=== PATIENT | male | born 1930 | race Caucasian/White ===

== ENCOUNTER 2018-03-05 08:01 | Emergency (ER) | payer OTHER ==
--- OUTSIDE RECORDS SUMMARY | 2018-03-05 08:03 | XMS REPORT | Clinical Summary ---
:1930 Author Organization [facility] Address [address] [place] [address] Phone Care Team Providers Name Role Phone Unavailable Primary Care Provider Unavailable Allergies Active Allergy Reactions Severity Noted Date Comments Alcohol Other (See Comments) 03/24/2016 Rash and hoarseness Cayenne Pepper Other (See Comments) 03/24/2016 Runny nose and hoarseness Chocolate Flavor Other (See Comments) 03/24/2016 Runny nose and hoarseness Peanut Other (See Comments) 03/24/2016 Runny nose hoarseness Rice Other (See Comments) 03/24/2016 Runny nose and hoarseness Tomato (Solanum Other (See Comments) 03/24/2016 Runny nose and Lycopersicum) hoarseness Quinazolinones Rash, Other (See Low 03/24/2016 agitation Comments) Sulfa (Sulfonamide Rash, Other (See Low 03/24/2016 agitation Antibiotics) Comments) Current Medications Prescription Sig. Disp. Refills Start Date End Date Status budesonide-formoterol Inhale 1 puff by mouth Active (SYMBICORT) 160-4.5 via inhaler daily . mcg/actuation inhaler zolpidem (AMBIEN) 10 Take 10 mg by mouth Active mg tablet every night as needed for Insomnia. albuterol Take 2.5 mg by Active (PROVENTIL,VENTOLIN) 5 nebulization every 6 mg/mL nebulizer (six) hours as needed solution for Wheezing. metoprolol (TOPROL-XL) Take 25 mg by mouth Active 25 MG 24 hr tablet daily. traMADol (ULTRAM) 50 Take 50 mg by mouth Active mg tablet every 6 (six) hours as needed for Pain. Active Problems Problem Noted Date Melanoma (HCC) 04/08/2016 Social History Tobacco Use Types Packs/Day Years Used Date Former Smoker 2 10 Comments: qiut at age 29. Alcohol Use Drinks/Week oz/Week Comments Yes 6 Shots of liquor 10.8 not every week 6 Cans of beer 6 Glasses of wine Sex Assigned at Date Recorded Not on file Last Filed Vital Signs Not on file Plan of Treatment Not on file Results Not on fileafter 03/04/2017 Advance Directives Patient has advance directives. For more information, please contact:[facility] [place], [place] [phone]
[2018-03-05] MEDS ORDERED: PANTOPRAZOLE 40 MG INJ ONE (08:41)
[2018-03-05 08:54] LABS: Absolute Lymphocytes (CBC) 0.9 K/uL (0.7-4.9); Absolute Monocytes 0.6 K/uL (0.1-1.3); Absolute Neutrophil 4.3 K/uL (1.8-8.0); Basophils % 1.3 % (0-1.3); Eosinophils % 4.2 % (0-4.4); Hematocrit 42.5 % (39.6-49.0); Lymphocytes % 15.1 % (15.3-44.8); MCV 93.8 fL (80-100); MPV 8.2 fL (7.6-11.3); Monocytes % 9.2 % (3.3-12.3); RBC Red Blood Cell Count 4.53 M/uL (4.33-5.43)
[2018-03-05] MEDS ORDERED: PANTOPRAZOLE INJ 80 MG in NA CHLORIDE 0.9% 250 ML IV SCH (09:00)
[2018-03-05 09:20] LABS: Albumin 3.7 g/dL (3.4-5.0); Bilirubin Direct 0.2 mg/dL (0-0.2); Bilirubin Total 0.5 mg/dL (0.2-1.0); Potassium 4.1 mmol/L (3.5-5.1); Protein, Total 6.9 g/dL (6.4-8.2)
--- NOTE | 2018-03-05 11:07 | RAD REPORT ---
EXAM DESCRIPTION: CT - Abdomen Pelvis W Contrast - 03/05/2018 10:36 am CLINICAL HISTORY: Abdominal pain, possible GI bleed, history of melanoma COMPARISON: CT study November 2016, CT imaging February 2010 TECHNIQUE: Biphasic, helical CT imaging of the abdomen and pelvis was performed following 100 ml non -ionic IV contrast. Oral contrast was administered. All CT scans are performed using dose optimization technique as appropriate and may include automated exposure control or mA/KV adjustment according to patient size. FINDINGS: No acute finding in the lung bases. In the lateral left lung base a 7 millimeter noncalcif ied nodular density is present dating back to 2009. This is not clearly different from the prior imag ing. . Liver size is normal. No suspicious liver lesion. 2 cysts are identified in the posterosuperior right lobe of the liver unchanged from greater than 1 year ago. Pancreas and spleen show no suspicious fin dings. Gallbladder and biliary tree are also without suspicious finding. Symmetric renal function is seen with no hydronephrosis or suspicious renal mass. No pyelonephritis o r acute renal parenchymal process. Benign cyst lateral lower left kidney has not changed from compari son. No gastric dilatation or gastric wall thickening. No acute small bowel finding. Patient has a normal variant mobile cecum with the tip of the cecum and ileocecal valve located in the left anterior mid a bdomen. No active process seen. There is moderate stool volume in the right side colon. No free air, free fluid or inflammatory stranding. No mass or bulky lymphadenopathy. Patient has a s mall incidental fat only umbilical hernia and a small left inguinal fat filled hernia. The urinary bl adder is without significant finding. No adrenal abnormality. Disc and bone degenerative changes are present. No pathologic bone process seen. IMPRESSION: No bowel obstruction, free air or surgically emergent finding. No significant or suspicious abdominal or pelvic finding. The above detailed findings are not clearly different from the study performed 15 months earlier.
--- NOTE | 2018-03-05 11:29 | ER ---
Nurse's Notes [facility] Name: Dave Gavin Age: 87 yrs Sex: Male : 1930 Arrival Date: 03/05/2018 Time: 08:05 Bed 14 Private MD: Jamie Hamm E Diagnosis: Melena Presentation: 03/05 08:19 Presenting complaint: Patient states: Dark black stools x 3 days, nausea today. Denies hb pain. Transition of care: patient was not received from another setting of care. Onset of symptoms was March 03, 2018. Risk Assessment: Do you want to hurt yourself or someone else? Patient reports no desire to harm self or others. Initial Sepsis Screen: Does the patient meet any 2 criteria? No. Patient's initial sepsis screen is negative. Does the patient have a suspected source of infection? No. Patient's initial sepsis screen is negative. Care prior to arrival: None. 08:19 Method Of Arrival: Ambulatory hb 08:19 Acuity: ANGEL 3 hb Historical: - Allergies: 08:20 No Known Allergies; hb - Home Meds: 08:20 Toprol XL 25 mg Oral Tb24 1 tab once daily [Active]; hb - PMHx: 08:20 Hypertension; Atrial Fib; malignant melanoma; hb - PSHx: 08:15 melanoma; prostate; Knee surgery; bladder; eye; rb1 - Immunization history:: Adult Immunizations up to date. - Social history:: Smoking status: Patient/guardian denies using tobacco. - Ebola Screening: : No symptoms or risks identified at this time. - Family history:: not pertinent. - Hospitalizations: : No recent hospitalization is reported. Screenin:15 Abuse screen: Denies threats or abuse. Nutritional screening: Pt. stated, "I haven't rb1 been eating right since my 3 months ago.". Tuberculosis screening: No symptoms or risk factors identified. Fall Risk None identified. Assessment: 08:15 General: Appears in no apparent distress. comfortable, Behavior is calm, cooperative. rb1 Pain: Denies pain. Neuro: Level of Consciousness is awake, alert, obeys commands, Oriented to person, place, time, situation. Cardiovascular: Capillary refill < 3 seconds is brisk in bilateral fingers. Respiratory: Airway is patent Respiratory effort is even, unlabored, Respiratory pattern is regular, symmetrical. GI: Reports bloody stool, nausea. : No signs and/or symptoms were reported regarding the genitourinary system. Derm: Skin is pink, warm \\T\\ dry. Musculoskeletal: Range of motion: intact in all extremities. 08:34 Reassessment: Sent fax to pharmacy requesting the Protonix drip. rb1 09:10 Reassessment: Patient appears in no apparent distress at this time. No changes from rb1 previously documented assessment. 10:10 Reassessment: Patient appears in no apparent distress at this time. Patient and/or rb1 family updated on plan of care and expected duration. Pain level reassessed. Patient is alert, oriented x 3, equal unlabored respirations, skin warm/dry/pink. 11:00 Reassessment: Patient appears in no apparent distress at this time. No changes from rb1 previously documented assessment. Vital Signs: 08:19 BP 150 / 70; Pulse 62; Resp 16; Temp 97.9; Pulse Ox 100% on R/A; Pain 0/10; hb 09:10 BP 142 / 86; Pulse 57; Resp 17; Pulse Ox 97% on R/A; rb1 10:10 BP 129 / 99; Pulse 80; Resp 16; Pulse Ox 95% on R/A; rb1 ED Course: 08:05 Patient arrived in ED. sb2 08:05 Jamie Hamm MD is Private Physician. sb2 08:15 Randell Ingram MD is Attending Physician. rn 08:15 Patient has correct armband on for positive identification. Placed in gown. Bed in low rb1 position. Call light in reach. Side rails up X 1. Pulse ox on. NIBP on. Warm blanket given. 08:20 Triage completed. hb 08:20 Arm band placed on right wrist. hb 08:30 Nadia Cevallos, RN is Primary Nurse. rb1 08:43 Initial lab(s) drawn, by me, sent to lab. T\\T\\S collected, blood band applied to patient. em1 Inserted saline lock: 20 gauge in left antecubital area, using aseptic technique. Blood collected. 10:35 CT completed. Patient moved to CT via stretcher. Patient moved back from CT. kw1 10:36 CT Abd/Pelvis - W/Contrast In Process Unspecified. EDMS 10:42 Patient moved back from CT. kw1 11:28 Krish Cardenas MD is Referral Physician. rn 11:50 No provider procedures requiring assistance completed. IV discontinued, intact, rb1 bleeding controlled, No redness/swelling at site. Pressure dressing applied. Administered Medications: 08:36 Drug: ProTONIX 40 mg Route: IVP; Site: left antecubital; rb1 08:55 Follow up: Response: No adverse reaction rb1 09:00 Drug: ProTONIX 8 mg/hr Route: IV; Rate: 25 ml/hr; Site: left antecubital; rb1 11:48 Follow up: Response: No adverse reaction; IV Status: Completed infusion rb1 Outcome: 11:28 Discharge ordered by MD. rn 11:47 Patient left the ED. aj1 11:50 Discharged to home ambulatory. rb1 11:50 Condition: stable 11:50 Discharge instructions given to patient, Instructed on discharge instructions, follow up and referral plans. medication usage, Demonstrated understanding of instructions, follow-up care, medications, Prescriptions given X 1. Signatures: Dispatcher [employer] EDMS Molly Anguiano RN RN aj1 Ranedll Ingram MD MD rn Martinez, Eric em1 Nadia Cevallos RN RN rb1 Sangita Roblero RN RN Tracy Giles kw1 Anny Carbajal sb2 Corrections: (The following items were deleted from the chart) 09:45 08:15 Pain: Complains of pain in abdomen Pain currently is 3 out of 10 on a pain scale. rb1 Pain began 2-3 days ago. rb1
--- NOTE | 2018-03-05 11:29 | EDPHYS ---
Physician Documentation [facility] Name: Dave Gavin Age: 87 yrs Sex: Male : 1930 Arrival Date: 03/05/2018 Time: 08:05 Bed 14 Private MD: Jamie Hamm E ED Physician Randell Ingram HPI: 03/05 09:20 This 87 yrs old Male presents to ER via Ambulatory with complaints of rn Black/Tarry Stools. 09:20 The patient presents to the emergency department with rectal bleeding, a small amount, rn melena, with multiple such episodes. Onset: The symptoms/episode began/occurred 3 day(s) ago. Abdominal pain: none is appreciated. Associated signs and symptoms: Pertinent negatives: chest pain, dizziness at rest, dizziness when standing, fever, shortness of breath, syncope, vomiting. Severity of symptoms: At their worst the symptoms were mild in the emergency department the symptoms are unchanged. The patient has not experienced similar symptoms in the past. The patient has not recently seen a physician. Pt reports black sticky stools for 3 days, + hx of GERD, lost 3 months ago, generally poor diet since then, no sob/lightheaded, no abd pain.. Historical: - Allergies: 08:20 No Known Allergies; hb - Home Meds: 08:20 Toprol XL 25 mg Oral Tb24 1 tab once daily [Active]; hb - PMHx: 08:20 Hypertension; Atrial Fib; malignant melanoma; hb - PSHx: 08:15 melanoma; prostate; Knee surgery; bladder; eye; rb1 - Immunization history:: Adult Immunizations up to date. - Social history:: Smoking status: Patient/guardian denies using tobacco. - Ebola Screening: : No symptoms or risks identified at this time. - Family history:: not pertinent. - Hospitalizations: : No recent hospitalization is reported. ROS: 09:20 Constitutional: Negative for fever, chills, and weight loss, Eyes: Negative for injury, rn pain, redness, and discharge, Neck: Negative for injury, pain, and swelling, Cardiovascular: Negative for chest pain, palpitations, and edema, Respiratory: Negative for shortness of breath, cough, wheezing, and pleuritic chest pain, Abdomen/GI: Negative for abdominal pain, nausea, vomiting, diarrhea, and constipation, MS/Extremity: Negative for injury and deformity, Skin: Negative for injury, rash, and discoloration, Neuro: Negative for headache, weakness, numbness, tingling, and seizure. Exam: 09:20 Constitutional: This is a well developed, well nourished patient who is awake, alert, rn and in no acute distress. Head/Face: Normocephalic, atraumatic. Eyes: Pupils equal round and reactive to light, extra-ocular motions intact. Normal conjunctivae Abdomen/GI: Soft, non-tender. No distension or tympany. No guarding or rebound. No evidence of tenderness throughout. MS/ Extremity: No cyanosis. Neurovascular intact. Full, normal range of motion Neuro: Awake and alert, GCS 15, oriented to person, place, time, and situation. Motor strength 5/5 in all extremities. Sensory grossly intact. Normal gait. Vital Signs: 08:19 BP 150 / 70; Pulse 62; Resp 16; Temp 97.9; Pulse Ox 100% on R/A; Pain 0/10; hb 09:10 BP 142 / 86; Pulse 57; Resp 17; Pulse Ox 97% on R/A; rb1 10:10 BP 129 / 99; Pulse 80; Resp 16; Pulse Ox 95% on R/A; rb1 MDM: 08:15 Patient medically screened. rn 11:27 Differential diagnosis: gastritis, PUD, ulcer, GERD, UGIB. Data reviewed: vital signs, rn nurses notes, lab test result(s), radiologic studies, CT scan, and as a result, I will discharge patient. Counseling: I had a detailed discussion with the patient and/or guardian regarding: the historical points, exam findings, and any diagnostic results supporting the discharge/admit diagnosis, lab results, radiology results, the need for outpatient follow up, to return to the emergency department if symptoms worsen or persist or if there are any questions or concerns that arise at home. Special discussion: I discussed with the patient/guardian in detail that at this point there is no indication for admission to the hospital. It is understood, however, that if the symptoms persist or worsen the patient needs to return immediately for re-evaluation. Based on the history and exam findings, there is no indication for further emergent testing or inpatient evaluation. I discussed with the patient/guardian the need to see the stove fitter for further evaluation of the symptoms. ED course: Pt feels good, asymptomatic, normal vitals, normal h/h, offered transfer to [facility] given no GI insulation estimator here, patient prefers to try outpt antacids and outpt GI/EGD, risks explained and he is comfortable with plan, will return if worsens. Not on anticoagulation.. 03/05 08:30 Order name: Basic Metabolic Panel; Complete Time: 09:39 rn 03/05 08:30 Order name: CBC with Diff; Complete Time: 09:39 rn 03/05 08:30 Order name: Hepatic Function; Complete Time: 09:39 rn 03/05 08:30 Order name: Lipase; Complete Time: 09:39 rn 03/05 08:30 Order name: CT Abd/Pelvis - W/Contrast; Complete Time: 11:18 rn 03/05 08:30 Order name: Type And Screen; Complete Time: 09:39 rn 03/05 08:30 Order name: IV Saline Lock; Complete Time: 08:42 rn 03/05 08:30 Order name: Labs collected and sent; Complete Time: 08:42 rn Administered Medications: 08:36 Drug: ProTONIX 40 mg Route: IVP; Site: left antecubital; rb1 08:55 Follow up: Response: No adverse reaction rb1 09:00 Drug: ProTONIX 8 mg/hr Route: IV; Rate: 25 ml/hr; Site: left antecubital; rb1 11:48 Follow up: Response: No adverse reaction; IV Status: Completed infusion rb1 Disposition: 03/05/18 11:28 Discharged to Home. Impression: Melena. - Condition is Stable. - Discharge Instructions: Gastrointestinal Bleeding. - Prescriptions for Protonix 40 mg Oral Tablet - take 1 tablet by ORAL route once daily; 30 tablet. - Medication Reconciliation Form, Thank You Letter, Antibiotic Education, Prescription Opioid Use form. - Follow up: Krish Cardenas MD; When: As needed; Reason: Recheck today's complaints, Re-evaluation by your physician. - Problem is new. - Symptoms have improved. Signatures: Dispatcher [employer] Molly Mathias RN RN aj1 Randell Ingram MD MD rn Barber, Rebecca, RN RN rb1 Sangita Roblero RN RN Corrections: (The following items were deleted from the chart) 09:29 09:20 Constitutional: This is a well developed, well nourished patient who is awake, rn alert, and in no acute distress. Head/Face: Normocephalic, atraumatic. Eyes: Pupils equal round and reactive to light, extra-ocular motions intact. Normal conjunctivae Abdomen/GI: Soft, non-tender, with normal bowel sounds. No distension or tympany. No guarding or rebound. No evidence of tenderness throughout. MS/ Extremity: No cyanosis. Neurovascular intact. Full, normal range of motion Neuro: Awake and alert, GCS 15, oriented to person, place, time, and situation. Motor strength 5/5 in all extremities. Sensory grossly intact. Normal gait. rn 11:47 11:28 03/05/2018 11:28 Discharged to Home. Impression: Melena. Condition is Stable. aj1 Forms are Medication Reconciliation Form, Thank You Letter, Antibiotic Education, Prescription Opioid Use. Follow up: Krish Cardenas; When: As needed; Reason: Recheck today's complaints, Re-evaluation by your physician. Problem is new. Symptoms have improved. rn
== END 2018-03-05 11:47 | disposition home or self-care (01) ==
LOC: ER 08:01
DX: K92.1 Melena (principal); I10 Essential (primary) hypertension; I48.91 Unspecified atrial fibrillation
CPT/HCPCS: 36415; 74177; 80048; 80076; 83690; 85025; 86850; 86900; 86901; C9113 ×2; Q9967; 96365; 96366; 99284

== ENCOUNTER 2019-07-19 09:33 | Emergency (ER) | payer OTHER ==
--- OUTSIDE RECORDS SUMMARY | 2019-07-19 09:39 | XMS REPORT ---
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
[2019-07-19 10:22] LABS: Absolute Lymphocytes (CBC) 0.6 K/uL (0.7-4.9); Basophils % 0.4 % (0-1.3); Hematocrit 43.8 % (39.6-49.0); Lymphocytes % 4.4 % (15.3-44.8); MPV 8.4 fL (7.6-11.3); RBC Red Blood Cell Count 4.67 M/uL (4.33-5.43)
[2019-07-19 10:28] LABS: Protime INR 0.89
[2019-07-19 10:30] LABS: Potassium 4.1 mmol/L (3.5-5.1)
[2019-07-19 12:50] LABS: Anisocytosis 1+; Blood Morphology Comment NOTED (NOT SEEN); Platelet Estimate ADEQ; Platelets, Giant FEW; Urine White Blood Cell Casts OK
[2019-07-19 13:01] LABS: Urine Blood 3+ (NEG); Urine Glucose NEGATIVE (NEG); Urine Protein 3+ (NEG)
[2019-07-19 13:04] LABS: Urine Bacteria NONE SEEN /HPF (NONE SEEN); Urine Culture Reflex Order NOT NEEDED; Urine RBC <5 /HPF (NONE SEEN)
--- NOTE | 2019-07-19 13:49 | ER ---
Nurse's Notes [facility] Name: Dave Gavin Age: 89 yrs Sex: Male : 1930 Arrival Date: 07/19/2019 Time: 09:35 Bed 23 Private MD: Jamie Hamm E Diagnosis: Hematuria, unspecified;Urinary Retention Presentation: 07/19 09:41 Presenting complaint: Patient states: woke up in the night and urinated blood, had iw urinary frequency, went 3-4 times, the last time he urinated a large clot and now has not been able to urinate, previous surgeries on bladder, uses abd pressure to help relieve himself due to his weak bladder, also has had a bad cough X 3 months. Transition of care: patient was not received from another setting of care. Onset of symptoms was July 19, 2019. Risk Assessment: Do you want to hurt yourself or someone else? Patient reports no desire to harm self or others. Initial Sepsis Screen: Does the patient meet any 2 criteria? No. Patient's initial sepsis screen is negative. Does the patient have a suspected source of infection? No. Patient's initial sepsis screen is negative. Care prior to arrival: None. 09:41 Method Of Arrival: Ambulatory iw 09:41 Acuity: ANGEL 3 iw Historical: - Allergies: 09:46 Sulfa (Sulfonamide Antibiotics); iw 09:46 Fluroquinolones; iw - Home Meds: 09:44 Toprol XL 25 mg Oral Tb24 1 tab once daily [Active]; iw - PMHx: 09:44 Atrial Fib; Hypertension; malignant melanoma; iw - PSHx: 09:44 melanoma; prostate; Knee surgery; bladder; eye; iw - Immunization history:: Adult Immunizations up to date. - Social history:: Smoking status: Patient/guardian denies using tobacco. - Ebola Screening: : Patient negative for fever greater than or equal to 101.5 degrees Fahrenheit, and additional compatible Ebola Virus Disease symptoms Patient denies exposure to infectious person Patient denies travel to an Ebola-affected area in the 21 days before illness onset No symptoms or risks identified at this time. - Family history:: not pertinent. - Hospitalizations: : No recent hospitalization is reported. Screenin:57 Abuse screen: Denies threats or abuse. Denies injuries from another. Nutritional ca1 screening: No deficits noted. Tuberculosis screening: No symptoms or risk factors identified. Fall Risk IV access (20 points). Assessment: 09:57 General: Appears in no apparent distress. comfortable, Behavior is calm, cooperative, ca1 appropriate for age. Pain: Denies pain. Neuro: Level of Consciousness is awake, alert, obeys commands, Oriented to person, place, time, situation, Appropriate for age. Cardiovascular: Heart tones S1 S2 present Capillary refill < 3 seconds Patient's skin is warm and dry. Respiratory: Airway is patent Respiratory effort is even, unlabored, Respiratory pattern is regular, symmetrical, Breath sounds are clear bilaterally. GI: Abdomen is round non-distended, Bowel sounds present X 4 quads. Abd is soft and non tender X 4 quads. : Reports urgency, urinary frequency, since last night blood in urine with clots. EENT: No signs and/or symptoms were reported regarding the EENT system. Derm: Skin is intact, is healthy with good turgor, Skin is pink, warm \T\ dry. Musculoskeletal: Circulation, motion, and sensation intact. Capillary refill < 3 seconds, Range of motion: intact in all extremities. 10:30 Reassessment: Bladder scanned: 566. ca1 11:04 Reassessment: Attempted a 3-way Cath F20, unable to push further than over have of the ca1 length of the cath. Not return. Attempted a 2 way F16, F12, F8, still unable to push all the way through and still no return. Notified provider. Pt tolerated well . 11:43 Reassessment: Patient appears in no apparent distress at this time. Patient is alert, ca1 oriented x 3, equal unlabored respirations, skin warm/dry/pink. 12:04 Reassessment: Will attempt to insert a Mason again with another nurse/tech. ca1 13:06 Reassessment: Irrigated bladder till clear. Few clots drained. Now draining pink ca1 stained urine. Pt tolerated well and states, feeling relieved. Notified provider. 13:10 Reassessment: Patient appears in no apparent distress at this time. Patient is alert, ca1 oriented x 3, equal unlabored respirations, skin warm/dry/pink. Patient states feeling better. 13:50 Reassessment: Patient appears in no apparent distress at this time. Patient is alert, ca1 oriented x 3, equal unlabored respirations, skin warm/dry/pink. 13:54 Reassessment: Pt discharged with Mason. Instructed on Mason cath care. Instructed to ca1 follow up with Urologist. Vital Signs: 09:46 BP 165 / 95; Pulse 82; Resp 16; Temp 97.4; Pulse Ox 97% on R/A; Weight 87.09 kg; Height iw 5 ft. 11 in. (180.34 cm); Pain 1/10; 11:43 BP 164 / 91; Pulse 88; Resp 17 S; Pulse Ox 95% on R/A; ca1 13:10 BP 135 / 71; Pulse 75; Resp 17 S; Pulse Ox 95% on R/A; ca1 13:50 BP 157 / 67; Pulse 86; Resp 17 S; Pulse Ox 95% on R/A; ca1 09:46 Body Mass Index 26.78 (87.09 kg, 180.34 cm) iw ED Course: 09:35 Patient arrived in ED. rg4 09:35 Jamie Hamm MD is Private Physician. rg4 09:43 Triage completed. iw 09:46 Arm band placed on. iw 09:47 Randell Ingram MD is Attending Physician. rn 09:47 Altagracia Beck RN is Primary Nurse. ca1 09:57 Patient has correct armband on for positive identification. Placed in gown. Bed in low ca1 position. Call light in reach. Side rails up X 1. Pulse ox on. NIBP on. Warm blanket given. 09:57 No provider procedures requiring assistance completed. ca1 10:06 Initial lab(s) drawn, by nm, sent to lab. Inserted saline lock: 20 gauge in right ca1 antecubital area, using aseptic technique. Blood collected. 12:42 Mason cath inserted, using sterile technique, 12 Fr., balloon inflated, to gravity ca1 drainage, other by SHAR [facility] Sup returned bloody urine. Patient tolerated well. 13:06 Bladder irrigated via Mason with 250 ml normal saline returned yon blood Patient ca1 tolerated well. 13:48 Marek Damon MD is Referral Physician. rn 14:08 IV discontinued, intact, bleeding controlled, No redness/swelling at site. Pressure ca1 dressing applied. Administered Medications: No medications were administered Output: 13:12 Urine: 650ml (Mason); Total: 650ml. ca1 Outcome: 13:48 Discharge ordered by . rn 14:08 Discharged to home ambulatory. ca1 14:08 Condition: stable 14:08 Discharge instructions given to patient, Instructed on discharge instructions, follow up and referral plans. medication usage, Catheter Care Demonstrated understanding of instructions, follow-up care, medications, Prescriptions given X 1. 14:09 Patient left the ED. ca1 Signatures: Hailey Mullins RN RN iw Randell Ingram MD MD rn Garcia, Rubi rg4 Altagracia Beck RN RN ca1 Corrections: (The following items were deleted from the chart) 12:14 12:04 Reassessment: Will attempt to insert a Mason again with another nurse/tech. ca1 ca1 13:11 13:10 Reassessment: Patient appears in no apparent distress at this time. Patient is ca1 alert, oriented x 3, equal unlabored respirations, skin warm/dry/pink. ca1 13:12 13:11 Urine 600, (Mason), Output Total 600. ca1 ca1
--- NOTE | 2019-07-19 13:50 | EDPHYS ---
Physician Documentation [facility] Name: Dave Gavin Age: 89 yrs Sex: Male : 1930 Arrival Date: 07/19/2019 Time: 09:35 Bed 23 Private MD: Jamie Hamm E ED Physician Randell Ingram HPI: 07/19 13:44 This 89 yrs old Male presents to ER via Ambulatory with complaints of Urinary rn Problem. 13:44 The patient presents with urinary symptoms, unable to void. Onset: The symptoms/episode rn began/occurred 1 hour(s) ago. Modifying factors: The symptoms are alleviated by nothing, the symptoms are aggravated by nothing. Severity of symptoms: At their worst the symptoms were mild, in the emergency department the symptoms are unchanged. The patient has experienced a previous episode. The patient has not recently seen a physician. Reports noticed blood in urine this AM, then unable to urinate, has happened once before, and had UTI, so took leftover macrobid. Unable to urinate for 1 hour. Minimal discomfort. . Historical: - Allergies: 09:46 Sulfa (Sulfonamide Antibiotics); iw 09:46 Fluroquinolones; iw - Home Meds: 09:44 Toprol XL 25 mg Oral Tb24 1 tab once daily [Active]; iw - PMHx: 09:44 Atrial Fib; Hypertension; malignant melanoma; iw - PSHx: 09:44 melanoma; prostate; Knee surgery; bladder; eye; iw - Immunization history:: Adult Immunizations up to date. - Social history:: Smoking status: Patient/guardian denies using tobacco. - Ebola Screening: : Patient negative for fever greater than or equal to 101.5 degrees Fahrenheit, and additional compatible Ebola Virus Disease symptoms Patient denies exposure to infectious person Patient denies travel to an Ebola-affected area in the 21 days before illness onset No symptoms or risks identified at this time. - Family history:: not pertinent. - Hospitalizations: : No recent hospitalization is reported. ROS: 13:45 Constitutional: Negative for fever, chills, and weight loss, Eyes: Negative for injury, rn pain, redness, and discharge, Cardiovascular: Negative for chest pain, palpitations, and edema, Respiratory: Negative for shortness of breath, cough, wheezing, and pleuritic chest pain, Abdomen/GI: Negative for abdominal pain, nausea, vomiting, diarrhea, and constipation, : + hematuria and retention MS/Extremity: Negative for injury and deformity, Neuro: Negative for headache, weakness, numbness, tingling, and seizure. Exam: 13:45 Constitutional: This is a well developed, well nourished patient who is awake, alert, rn and in no acute distress. Head/Face: Normocephalic, atraumatic. ENT: MMM Cardiovascular: Regular rate and rhythm. No pulse deficits. Respiratory: No increased work of breathing, no retractions or nasal flaring. Abdomen/GI: soft, non-tender, non-distended MS/ Extremity: Pulses equal, no cyanosis. Neurovascular intact. Full, normal range of motion. Equal circumference. Neuro: Awake and alert, GCS 15, oriented to person, place, time, and situation. Cranial nerves II-XII grossly intact. Motor strength 5/5 in all extremities. Sensory grossly intact. Vital Signs: 09:46 BP 165 / 95; Pulse 82; Resp 16; Temp 97.4; Pulse Ox 97% on R/A; Weight 87.09 kg; Height iw 5 ft. 11 in. (180.34 cm); Pain 1/10; 11:43 BP 164 / 91; Pulse 88; Resp 17 S; Pulse Ox 95% on R/A; ca1 13:10 BP 135 / 71; Pulse 75; Resp 17 S; Pulse Ox 95% on R/A; ca1 13:50 BP 157 / 67; Pulse 86; Resp 17 S; Pulse Ox 95% on R/A; ca1 09:46 Body Mass Index 26.78 (87.09 kg, 180.34 cm) iw MDM: 09:47 Patient medically screened. rn 13:45 Differential diagnosis: UTI, urinary retention. Differential diagnosis: bladder cancer, rn bladder diverticulum. Data reviewed: vital signs, nurses notes. Counseling: I had a detailed discussion with the patient and/or guardian regarding: the historical points, exam findings, and any diagnostic results supporting the discharge/admit diagnosis, lab results, the need for outpatient follow up, to return to the emergency department if symptoms worsen or persist or if there are any questions or concerns that arise at home. Response to treatment: the patient's symptoms have markedly improved after treatment, and as a result, I will discharge patient. Special discussion: I discussed with the patient/guardian in detail that at this point there is no indication for admission to the hospital. It is understood, however, that if the symptoms persist or worsen the patient needs to return immediately for re-evaluation. Based on the history and exam findings, there is no indication for further emergent testing or inpatient evaluation. I discussed with the patient/guardian the need to see the urologist for further evaluation of the symptoms. ED course: Pt improved, bladder irrigated and now light pink drainage, no more clots, will dc home with indwelling fleming and abx, with urology f/u. . 07/19 09:57 Order name: Urine Culture rn 07/19 09:57 Order name: Urine Microscopic Only; Complete Time: 13:23 rn 07/19 09:57 Order name: CBC with Diff; Complete Time: 13:23 rn 07/19 09:57 Order name: Basic Metabolic Panel; Complete Time: 13:23 07/19 09:57 Order name: PT-INR; Complete Time: 13:23 07/19 09:57 Order name: Ptt, Activated; Complete Time: 13:23 rn 07/19 09:57 Order name: Urine Dipstick-Ancillary (obtain specimen); Complete Time: 13:10 rn 07/19 09:57 Order name: IV Start; Complete Time: 11:04 rn 07/19 09:57 Order name: Bladder Scanner; Complete Time: 11:03 rn 07/19 09:57 Order name: Bladder Irrigation; Complete Time: 13:06 rn 07/19 09:57 Order name: Fleming; Complete Time: 12:42 rn 07/19 10:37 Order name: CBC Smear Scan; Complete Time: 13:23 EDNM 07/19 12:51 Order name: Urine Dipstick--Ancillary (enter results); Complete Time: 13:23 eb Administered Medications: No medications were administered Disposition: 07/19/19 13:48 Discharged to Home. Impression: Hematuria, unspecified, Urinary Retention. - Condition is Stable. - Discharge Instructions: Fleming Catheter Care, Adult, Hematuria, Adult, Acute Urinary Retention, Male. - Prescriptions for Macrobid 100 mg Oral Capsule - take 1 capsule by ORAL route every 12 hours for 10 days; 20 capsule. - Medication Reconciliation Form, Thank You Letter, Antibiotic Education, Prescription Opioid Use form. - Follow up: Marek Damon MD; When: 1 week; Reason: Recheck today's complaints, Re-evaluation by your physician. - Problem is new. - Symptoms have improved. Signatures: Dispatcher [employer] Hailey Ortiz RN RN Randell Zaragoza MD MD rn Acob, SHAR Frias RN ca1 Corrections: (The following items were deleted from the chart) 14:09 13:48 07/19/2019 13:48 Discharged to Home. Impression: Hematuria, unspecified; Urinary ca1 Retention. Condition is Stable. Forms are Medication Reconciliation Form, Thank You Letter, Antibiotic Education, Prescription Opioid Use. Follow up: Marek Damon; When: 1 week; Reason: Recheck today's complaints, Re-evaluation by your physician. Problem is new. Symptoms have improved. rn
[2019-07-19 14:50] VITALS: TEMP 97.4
[2019-07-19 14:51] VITALS: O2SAT 95
[2019-07-19 14:54] VITALS: BP 157/67
== END 2019-07-19 14:09 | disposition home or self-care (01) ==
LOC: ER 09:33
DX: R33.9 Retention of urine, unspecified (principal); I10 Essential (primary) hypertension; Z88.2 Allergy status to sulfonamides; Z88.8 Allergy status to other drugs, medicaments and biological substances; Z85.46 Personal history of malignant neoplasm of prostate
CPT/HCPCS: 36415; 51700; 51702; 80048; 81003; 81015; 85025; 85610; 85730; 87086; 87088; 99285

== ENCOUNTER 2019-07-19 17:10 | Emergency (ER) | payer OTHER ==
--- OUTSIDE RECORDS SUMMARY | 2019-07-19 17:12 | XMS REPORT ---
:1930 Author Organization [employer] Care Team Providers Name Role Phone Judson Cedillo Provider Role Unavailable Allergies, Adverse Reactions, [...] Date End Date Status Dosage Breo Ellipta [facility] 88060-354 Active not defined 2-10 Spiriva Respimat [facility] 68477-603 Active not defined 0-61 Montelukast [facility] 09212-017 Active not defined Sodium 7-19 Ambien [facility] 18174-399 Active not defined 1-31 Fluticasone [facility] 88213-177 Active not defined Propionate HFA 0-20 Results No Known Results Summary Purpose [employer] Submission
--- NOTE | 2019-07-19 18:28 | ER ---
Nurse's Notes [facility] Name: Dave Gavin Age: 89 yrs Sex: Male : 1930 Arrival Date: 07/19/2019 Time: 17:12 Bed 4 Private MD: Diagnosis: Hematuria, unspecified;Urinary Retention Presentation: 07/19 17:48 Presenting complaint: Patient states: was sent home with fleming in place today, was told iw to irrigate it at home, tried to irrigate it and heard a pop, fleming came out with no balloon in place, also having abd pain. Transition of care: patient was not received from another setting of care. Onset of symptoms was July 19, 2019. Risk Assessment: Do you want to hurt yourself or someone else? Patient reports no desire to harm self or others. Initial Sepsis Screen: Does the patient meet any 2 criteria? No. Patient's initial sepsis screen is negative. Does the patient have a suspected source of infection? No. Patient's initial sepsis screen is negative. Care prior to arrival: None. 17:48 Method Of Arrival: Ambulatory iw 17:48 Acuity: ANGEL 3 iw Triage Assessment: 18:05 General: Appears in no apparent distress. Behavior is calm, cooperative, appropriate vc for age. Pain: Complains of pain in abdomen. Historical: - Allergies: 17:50 Fluroquinolones; iw 17:50 Sulfa (Sulfonamide Antibiotics); iw - PMHx: 17:50 Atrial Fib; Hypertension; malignant melanoma; iw - PSHx: 17:50 melanoma; prostate; Knee surgery; bladder; eye; iw - Immunization history:: Adult Immunizations up to date. - Ebola Screening: : Patient negative for fever greater than or equal to 101.5 degrees Fahrenheit, and additional compatible Ebola Virus Disease symptoms Patient denies exposure to infectious person Patient denies travel to an Ebola-affected area in the 21 days before illness onset No symptoms or risks identified at this time. - Family history:: not pertinent. - Social history:: Smoking status: Patient/guardian denies using tobacco. - Hospitalizations: : No recent hospitalization is reported. Screenin:05 Abuse screen: Denies threats or abuse. Nutritional screening: No deficits noted. vc Tuberculosis screening: No symptoms or risk factors identified. Fall Risk IV access (20 points). Mental Status- Oriented to own ability (0 pts). Total Barroso Fall Scale indicates No Risk (0-24 pts). Assessment: 18:05 General: Appears in no apparent distress. uncomfortable. Pain: Complains of pain in vc abdomen. Neuro: Level of Consciousness is awake, alert, obeys commands, Oriented to person, place, time. Cardiovascular: Patient's skin is warm and dry. Respiratory: Airway is patent Respiratory effort is even, unlabored. GI: No signs and/or symptoms were reported involving the gastrointestinal system. : Urine is yon blood. EENT: Reports hard of hearing.. 18:05 Derm: Skin is healthy with good turgor. Musculoskeletal: Range of motion: intact in all vc extremities. 18:54 Reassessment: Reassessment: Patient states that he was irrigating his fleming when he vc heard a loud pop and then had abdominal pain. Patient showed us the port he used to irrigate, which happened to be the port used to fill the fleming balloon. 19:09 General: Appears in no apparent distress. comfortable, Behavior is calm, cooperative, jd3 appropriate for age. Pain: Complains of pain in suprapubic area. Neuro: Level of Consciousness is awake, alert, obeys commands, Oriented to person, place, time, situation. Cardiovascular: Capillary refill < 3 seconds Patient's skin is warm and dry. Respiratory: Airway is patent Respiratory effort is even, unlabored, Respiratory pattern is regular, symmetrical. GI: Reports lower abdominal pain. : Fleming in place to gravity drainage Urine is yon blood. EENT: No signs and/or symptoms were reported regarding the EENT system. Derm: Skin is intact, Skin is dry, Skin is normal, Skin temperature is warm. Musculoskeletal: Circulation, motion, and sensation intact. Range of motion: intact in all extremities. 20:10 Reassessment: Patient appears in no apparent distress at this time. No changes from jd3 previously documented assessment. Patient and/or family updated on plan of care and expected duration. Pain level reassessed. Patient is alert, oriented x 3, equal unlabored respirations, skin warm/dry/pink. report given to [facility] Bent[facility] Levi RN. 20:43 Reassessment: Patient appears in no apparent distress at this time. No changes from jd3 previously documented assessment. Patient and/or family updated on plan of care and expected duration. Pain level reassessed. Patient is alert, oriented x 3, equal unlabored respirations, skin warm/dry/pink. report given to EMS. Vital Signs: 17:50 BP 153 / 101; Pulse 93; Resp 16; Temp 98.2; Pulse Ox 94% on R/A; Weight 86.64 kg; iw Height 5 ft. 11 in. (180.34 cm); Pain 6/10; 19:11 BP 136 / 87; Pulse 94; Resp 18 S; Pulse Ox 95% on R/A; jd3 20:10 BP 136 / 90; Pulse 90; Resp 16 S; Pulse Ox 97% on R/A; jd3 17:50 Body Mass Index 26.64 (86.64 kg, 180.34 cm) ED Course: 17:12 Patient arrived in ED. rg4 17:49 Triage completed. iw 18:04 Rosa Ley, RN is Primary Nurse. vc 18:05 Arm band placed on. vc 18:05 Patient has correct armband on for positive identification. Placed in gown. Bed in low vc position. Call light in reach. Side rails up X2. 18:06 Randell Ingram MD is Attending Physician. rn 18:35 Coud inserted, using sterile technique, 14 Fr. Returned bloody urine. To gravity vc drainage. Patient tolerated well. 18:52 Inserted saline lock: 20 gauge in right antecubital area, using aseptic technique. vc 18:53 Basic Metabolic Panel Sent. vc 18:53 CBC with Diff Sent. vc 20:43 No provider procedures requiring assistance completed. Patient transferred, IV remains jd3 in place. Administered Medications: No medications were administered Outcome: 18:27 ER care complete, transfer ordered by . rn 20:43 Transferred by ground [facility] to [facility], Transfer form completed. jd3 20:43 Condition: stable 20:43 Instructed on the need for transfer, Demonstrated understanding of instructions. 20:44 Patient left the ED. jd3 Signatures: Hailey Mullins RN RN Randell Ingram MD MD rn Garcia, Rubi rg4 Javid Pete RN RN jd3 Calcote, Vanessa, RN RN vc Corrections: (The following items were deleted from the chart) 19:12 18:54 Reassessment: vc vc
--- NOTE | 2019-07-19 18:29 | EDPHYS ---
Physician Documentation [facility] Name: Dave Gavin Age: 89 yrs Sex: Male : 1930 Arrival Date: 07/19/2019 Time: 17:12 Bed 4 Private MD: ED Physician Randell Ingram HPI: 07/19 18:11 This 89 yrs old Male presents to ER via Ambulatory with complaints of Problem rn With Urinary Catheter. 18:11 The patient presents with urinary symptoms, retention. Onset: The symptoms/episode rn began/occurred this morning. Modifying factors: The symptoms are alleviated by nothing, the symptoms are aggravated by urinating. Associated signs and symptoms: Pertinent positives: abdominal pain, hematuria, Pertinent negatives: fever. Severity of symptoms: At their worst the symptoms were moderate, in the emergency department the symptoms are unchanged. The patient has experienced a previous episode. The patient has been recently seen at the [facility] Emergency Department. Seen earlier today, sent home with fleming catheter, small size due to trouble passing catheter, got clogged when went home. Unable to urinate with lower abd pain. States tried to irrigate catheter, felt a lot of pressure, heard a light pop, and fleming catheter came out, thinks popped balloon. . Historical: - Allergies: 17:50 Fluroquinolones; iw 17:50 Sulfa (Sulfonamide Antibiotics); iw - PMHx: 17:50 Atrial Fib; Hypertension; malignant melanoma; iw - PSHx: 17:50 melanoma; prostate; Knee surgery; bladder; eye; iw - Immunization history:: Adult Immunizations up to date. - Ebola Screening: : Patient negative for fever greater than or equal to 101.5 degrees Fahrenheit, and additional compatible Ebola Virus Disease symptoms Patient denies exposure to infectious person Patient denies travel to an Ebola-affected area in the 21 days before illness onset No symptoms or risks identified at this time. - Family history:: not pertinent. - Social history:: Smoking status: Patient/guardian denies using tobacco. - Hospitalizations: : No recent hospitalization is reported. ROS: 18:16 Constitutional: Negative for fever, chills, and weight loss, Eyes: Negative for injury, rn pain, redness, and discharge, Cardiovascular: Negative for chest pain, palpitations, and edema, Respiratory: Negative for shortness of breath, cough, wheezing, and pleuritic chest pain, Abdomen/GI: Negative for vomiting, diarrhea, and constipation, : + hematuria and lower abd pain, + urinary retention MS/Extremity: Negative for injury and deformity, Skin: Negative for injury, rash, and discoloration, Neuro: Negative for headache, weakness, numbness, tingling, and seizure. Exam: 18:16 Constitutional: This is a well developed, well nourished patient who is awake, alert, rn appears anxious Head/Face: Normocephalic, atraumatic. ENT: MMM Cardiovascular: Regular rate and rhythm. No pulse deficits. Respiratory: No increased work of breathing, no retractions or nasal flaring. Abdomen/GI: soft, mild suprapubic tenderness MS/ Extremity: Pulses equal, no cyanosis. Neurovascular intact. Full, normal range of motion. Equal circumference. Neuro: Awake and alert, GCS 15, oriented to person, place, time, and situation. Cranial nerves II-XII grossly intact. Motor strength 5/5 in all extremities. Sensory grossly intact. Cerebellar exam normal. Normal gait. Vital Signs: 17:50 BP 153 / 101; Pulse 93; Resp 16; Temp 98.2; Pulse Ox 94% on R/A; Weight 86.64 kg; iw Height 5 ft. 11 in. (180.34 cm); Pain 6/10; 19:11 BP 136 / 87; Pulse 94; Resp 18 S; Pulse Ox 95% on R/A; jd3 20:10 BP 136 / 90; Pulse 90; Resp 16 S; Pulse Ox 97% on R/A; jd3 17:50 Body Mass Index 26.64 (86.64 kg, 180.34 cm) iw MDM: 18:06 Patient medically screened. rn 18:17 ED course: new fleming catheter placed, will irrigate once again, and transfer given 2 rn visits today with ongoing hematuria and no urology here. . 18:25 Differential diagnosis: UTI, urinary retention. Data reviewed: vital signs, nurses rn notes, lab test result(s), and as a result, I will admit patient. Counseling: I had a detailed discussion with the patient and/or guardian regarding: the historical points, exam findings, and any diagnostic results supporting the discharge/admit diagnosis, lab results, the need to transfer to another facility, [facility] does not immediately have the required specialist. Response to treatment: the patient's symptoms have mildly improved after treatment, and as a result, I will admit patient. Admission orders: after a detailed discussion of the patient's condition and case, the admit orders are written by me. ED course: Accepted for transfer to [facility] for urinary retention and ongoing hematuria. . 07/19 18:11 Order name: CBC with Diff rn 07/19 18:11 Order name: Basic Metabolic Panel rn 07/19 18:11 Order name: Fleming-Hematuria; Complete Time: 18:53 rn 07/19 20:30 Order name: Manual Differential EDMS Administered Medications: No medications were administered Disposition: 07/19/19 18:27 Transfer ordered to [facility]. Diagnosis are Hematuria, unspecified, Urinary Retention. - Reason for transfer: Higher level of care. - Accepting physician is . - Condition is Stable. - Problem is new. - Symptoms have improved. Signatures: Dispatcher [employer] EDMS Hailey Mullins RN RN iw Nieto, Roman, MD MD rn Davies, Jonathon, RN RN jRosa Hardy RN RN vc Corrections: (The following items were deleted from the chart) 20:44 18:27 07/19/2019 18:27 Transfer ordered to [facility]. Diagnosis is jd3 Hematuria, unspecified; Urinary Retention. Reason for transfer: Higher level of care. Accepting physician is . Condition is Stable. Problem is new. Symptoms have improved. rn
[2019-07-19 18:59] LABS: Absolute Lymphocytes (CBC) 0.4 K/uL (0.7-4.9); Basophils % 0.6 % (0-1.3); Hematocrit 43.5 % (39.6-49.0); Lymphocytes % 2.1 % (15.3-44.8); MPV 8.2 fL (7.6-11.3); RBC Red Blood Cell Count 4.61 M/uL (4.33-5.43)
[2019-07-19 19:14] LABS: Potassium 4.3 mmol/L (3.5-5.1)
[2019-07-19 20:29] LABS: Blood Morphology Comment NOT SEEN (NOT SEEN); Platelet Estimate ADEQ
[2019-07-19 21:58] VITALS: TEMP 98.2
[2019-07-19 22:02] VITALS: BP 136/90; O2SAT 97
== END 2019-07-19 20:44 | disposition short-term general hospital (02) ==
LOC: ER 17:10
DX: R33.9 Retention of urine, unspecified (principal); I10 Essential (primary) hypertension; Z85.46 Personal history of malignant neoplasm of prostate; Z88.2 Allergy status to sulfonamides; Z88.8 Allergy status to other drugs, medicaments and biological substances
CPT/HCPCS: 36415; 80048; 85025; 99285

== ENCOUNTER 2020-12-19 09:56 | Emergency (ER) | payer OTHER ==
--- OUTSIDE RECORDS SUMMARY | 2020-12-19 10:00 | XMS REPORT | Continuity of Care Document ---
:1930 Author Organization [facility] t Address 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[facility] - arthropath arthropath Me moria y of right y of right l shoulder shoulder Outpat i ent Clinics 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 [facility] urin urin [facility] - obs/LUTS obs/LUTS Memori a l Outpati ent Clinics Allergies, Adverse Reactions, Alerts Allergy Allergy Status Severity Reaction(s) Onset Inactive Treating Comm ents Source Name Type Date Date Clinician Alcohol Drug Active Other (See Rash and [facility] Allergy Comments) 03-24 hoarsenes Mckenzie es - 00:00: s Medical 00 [facility] Cay[place] Drug Active Other (See Runny [facility] Pepper Allergy Comments) 03-24 nose and Luke s - 00:00: hoarsenes Medical 00 [facility] Chocolat Drug Active Other (See Runny [facility] Flavor Allergy Comments) 03-24 nose and Mary kes - 00:00: hoarsenes Medical 00 [facility] Peanut Drug Active Other (See Runny [facility] Allergy Comments) 03-24 [facility] Quinazol Drug Active Rash, Other agitation [facility] inones Allergy (See 03-24 [facility] - Comments) 00:00: Medical 00 Center Rice Drug Active Other (See Runny [facility] Allergy Comments) 03-24 nose and Luke s - 00:00: [facility] 00 [facility] Sulfa Drug Active Rash, Other agitation [facility] (Sulfona Allergy (See 03-24 [facility] - mide Comments) 00:00: Medical Antibiot 00 Center ics) Tomato Drug Active Other (See Runny [facility] (Solanum Allergy Comments) 03-24 nose and Mary kes - Lycopers 00:00: [facility] al icum) 00 [facility] Sulfa Adverse Active Info Not [facility] Reaction Available [facility] Antibiot Adverse Active Info Not [facility] t ic Reaction Available [facility] ent Clinics Social History Social Habit Start Date Stop Date Quantity Comments Source Sex Assigned At [facility] Cigarettes smoked 2019-07-19 2019-07-19 [facility] - current (pack per 00:00:00 00:00:00 [facility] Center day) - Reported Cigarette 2019-07-19 2019-07-19 [facility] - pack-years 00:00:00 00:00:00 [facility] Alcohol intake 2019-07-19 2019-07-[address] [facility] Jaun mortensen [facility]ukes - 00:00:00 00:00:00 of alcohol [facility] Center (finding) Tobacco Comment 2016-03-24 2016-03-24 qiut at age [address] [facility] Lukes - 00:00:00 00:00:00 [facility] Alcohol Comment 2016-03-24 2016-03-24 not every week [facility] - 00:00:00 00:00:00 [facility] Smoking Status Start Date Stop Date Source Former smoker 2019-07-19 00:00:00 2019-07-19 00:00:00 [facility] Medications Ordered Filled Start Stop Current Ordering Indication Dosage Frequency Signature Comments Components Source Medication Medication Date Date Medication? Clinician (SIG) Name Name budesonide- Yes 1{puff} QD Inhale [address] [facility] formoterol 1-01 puff by Lukes - (SYMBICORT) 13:52: mouth via M edical 160-4.5 51 inhaler Center mcg/actuati daily . on inhaler zolpidem 2019-0 Yes 10mg Take [address] [facility] (AMBIEN) 10 1-01 by mouth Luke s - mg tablet 13:52: every Medical 51 night as Center needed for Insomnia. albuterol 2019-0 Yes 2.5mg Take 2.[address] [facility] (PROVENTIL, 1-01 mg by Lukes - VENTOLIN) 5 13:52: nebulizati Medical mg/mL 51 on every 6 Center nebulizer (six) solution hours as needed for Wheezing. traMADol 2019-0 Yes 50mg Take [address] (ULTRAM) 50 1- by mouth Luke s - mg tablet 13:52: every 6 Medic al 51 (six) Center hours as needed for Pain. vitamin E 2019-0 Yes 50mg QD Take [address] mixed 400 07-25 by mouth Lukes - unit Cap 13:52: daily. Medical 51 Center ciclopirox Yes Apply to [facility] (LOPROX) 6-14 groin and Lukes - 0.77 % 00:00: feet twice Medic al cream 00 a day Center fluticasone Yes [facility] furoate-eveline 5-20 [facility] - anterol 00:00: Medical (BREO 00 Center ELLIPTA) 100-25 mcg/dose DsDv Breo Breo Yes Marek not [facility] Ellipta Ellipta Nelson defined Luke s - Memoria l Outpati ent Clinics Spiriva Spiriva Yes Marek not [facility] Respimat Respimat [place] defined Mary kes - Memoria l Outpati ent Clinics Montelukast Montelukast Yes Marek not [facility] Sodium Sodium [place] defined Lukes - [facility] Outpati ent Clinics Ambien Ambien Yes Marek not [facility] [place] defined Lukes - [facility]oria [facility] Outpati ent Clinics Fluticasone Fluticasone Yes Marek not [facility] Propionate Propionate Nelson defined [facility]ukes - HFA HFA [facility] Zolpidem Zolpidem Yes Marek [address] [address] Tartrate Tartrate Nelson at bedtime [facility]ukes - as needed [facility] Incruse Incruse Yes Marek [address] [facility] Ellipta Ellipta [place] [facility] Procedures This patient has no known procedures. Plan of Care Planned Activity Planned Date Details Comments Source Future Scheduled 2020-03-25 INFLUENZA VACCINE (#1) [facility] - Test 00:00:00 [code = INFLUENZA Medical Ce nter VACCINE (#1)] Future Scheduled 2019-07-[address] [facility] ukes - Test 00:00:00 WELLNESS (YEAR 2 or Medical Center FIRST YEAR if no IPPE) [code = MEDICARE ANNUAL WELLNESS (YEAR 2 or FIRST YEAR if no IPPE)] Future Scheduled 1996 PNEUMOCOCCAL 65+ YRS [facility] - Test 00:00:00 (1 of 1 - Medical Center [id number]) [code = PNEUMOCOCCAL 65+ YRS (1 of 1 - [id number] PCV13)] Encounters Start End Encounter Admission Attending Care Care Encounter Source Date/Time Date/Time Type Type Clinicians Facility Department ID 2019-08-07 2019-08-07 Outpatient [place] [id number] 10:31:00 10:31:00 t Specialty/U Mary kes - [facility]y [facility] 2019-07-27 2019-07-27 Outpatient Jorge [place] [id number] 11:15:00 11:15:00 t Specialty/U Mary kes - Specialty rology Memori a /Urology Clinic [facility] ent [facility] 2019-07-24 2019-07-24 Outpatient Jorge [place] [id number] 14:53:00 14:53:00 t Specialty/U Mary kes - Specialty rology Memori a /Urology Clinic [facility] ent [facility] 2019-04-05 2019-04-05 Outpatient Jorge [place] [id number] 08:30:00 08:30:00 t Bone Bone and [facility] - and [facility] Results Test Description Test Time Test Comments Results Result Comments Source PSA 2019-07-25 13:05:00 Test Item Value Reference Range Interpretation Comme nts PROSTATE SPECIFIC ANTIGEN (BEAKER) (test code = 844) 2.4 ng/mL 0 .0-4.0 MR, ABDOMEN, [id number] 10:09:00FINAL REPORT INDICATION:History of prostate cancer and possible liver lesion.COMPARISON: Abdomen pelvis CT without contrast July 20, 2019 TECHNIQUE: MR of the Abdomen WITHOUT and WITH intravenous contrast. FINDINGS:There are several benign liver cysts, the largest in the posterior segment measuring 1.6 cm. No suspicious liver lesion or mass is demonstrated. The liver is normal in contour and signal (no cirrhosis or fatty infiltration). The hepatic vasculature is patent. Gallbladder is normal and there is no biliary ductal dilation. No pancreatic mass or ductal dilation is demonstrated. The spleen and adrenal glands are normal. The patient is status post right nephrectomy. In the left kidney lower pole there is a 1.8 cm multiseptated cyst. Simple benign partially exophytic cyst of the left lower pole is noted. There is a 3.5 cm duodenal diverticulum. Visualized bowel loops otherwise unremarkable. Miniscule bilateral pleural effusions are noted. Osseous structures unremarkable. IMPRESSION:Benign liver cysts. No evidence of hepatic metastasis. Prior right nephrectomy. Left kidney complex cyst measuring 1.8 cm, indeterminate. Follow-up abdomen MR without and with intravenous contrast in one year is recommended. Signed: Sigifredo Carranza MDReport Verified Date/Time: 07/25/2019 10:09:43 Reading Location: [address] Transitional Reading Room [id number] 05:41:00 Test Item Value Reference Range Interpretation Comments MAGNESIUM (BEAKER) (test code = 1.8 mg/dL 1.6-2.6 627) BASIC METABOLIC [id number] 05:41:00 Test Item Value Reference Range Interpretation Comments SODIUM (BEAKER) 141 meq/L 136-145 (test code = 381) POTASSIUM (BEAKER) 3.9 meq/L 3.5-5.1 (test code = 379) CHLORIDE (BEAKER) 109 meq/L 98-107 H (test code = 382) CO2 (BEAKER) (test 25 meq/L 22-29 code = 355) BLOOD UREA NITROGEN 15 mg/dL 7-21 (BEAKER) (test code = 354) CREATININE (BEAKER) 1.05 mg/dL 0.57-1.25 (test code = 358) GLUCOSE RANDOM 103 mg/dL 70-105 (BEAKER) (test code = 652) CALCIUM (BEAKER) 9.8 mg/dL 8.4-10.2 (test code = 697) EGFR (BEAKER) (test 67 mL/min/1.73 ESTIMA TREY GFR IS code = 1092) sq m NOT ACCURATE CREATININE CLEARANCE IN PREDICTING GLOMERULAR FILTRATION RATE . ESTIMATED GFR I S NOT APPLICABLE FOR DIALYSIS PATIEN TS. CBC W/PLT COUNT & AUTO [id number] 05:04:00 Test Item Value Reference Range Interpretation Comments WHITE BLOOD CELL COUNT (BEAKER) 7.4 K/ L 3.5-10.5 (test code = 775) RED BLOOD CELL COUNT (BEAKER) 3.79 M/ L 4.63-6.08 L (test code = 761) HEMOGLOBIN (BEAKER) (test code = 11.6 GM/DL 13.7-17.5 L 410) HEMATOCRIT (BEAKER) (test code = 36.4 % 40.1-51.0 L 411) MEAN CORPUSCULAR VOLUME (BEAKER) 96.0 fL 79.0-92.2 H (test code = 753) MEAN CORPUSCULAR HEMOGLOBIN 30.6 pg 25.7-32.2 (BEAKER) (test code = 751) MEAN CORPUSCULAR HEMOGLOBIN CONC 31.9 GM/DL 32.3-36.5 L (BEAKER) (test code = 752) RED CELL DISTRIBUTION WIDTH 13.0 % 11.6-14.4 (BEAKER) (test code = 412) PLATELET COUNT (BEAKER) (test 350 K/CU MM 150-450 code = 756) MEAN PLATELET VOLUME (BEAKER) 9.7 fL 9.4-12.4 (test code = 754) NUCLEATED RED BLOOD CELLS 0 /100 WBC 0-0 (BEAKER) (test code = 413) NEUTROPHILS RELATIVE PERCENT 64 % (BEAKER) (test code = 429) LYMPHOCYTES RELATIVE PERCENT 19 % (BEAKER) (test code = 430) MONOCYTES RELATIVE PERCENT 10 % (BEAKER) (test code = 431) EOSINOPHILS RELATIVE PERCENT 6 % (BEAKER) (test code = 432) BASOPHILS RELATIVE PERCENT 1 % (BEAKER) (test code = 437) NEUTROPHILS ABSOLUTE COUNT 4.72 K/ L 1.78-5.38 (BEAKER) (test code = 670) LYMPHOCYTES ABSOLUTE COUNT 1.41 K/ L 1.32-3.57 (BEAKER) (test code = 414) MONOCYTES ABSOLUTE COUNT (BEAKER) 0.73 K/ L 0.30-0.82 (test code = 415) EOSINOPHILS ABSOLUTE COUNT 0.41 K/ L 0.04-0.54 (BEAKER) (test code = 416) BASOPHILS ABSOLUTE COUNT (BEAKER) 0.09 K/ L 0.01-0.08 H (test code = 417) IMMATURE GRANULOCYTES-RELATIVE 1 % 0-1 PERCENT (BEAKER) (test code = 2801) U/S, ABDOMINAL, [id number] 19:07:00Reason for exam:->r/o metastatic prostate cancer Should this be performed at the bedside?->NoFINAL REPORT Limited ultrasound of the abdomen Clinical indications: Concern for metastatic prostate cancer COMPARISON: CT of the abdomen and pelvis dated 07/20/2019 Technique/findings:The patient presented to the ultrasound department for biopsy of a right hepatic lobe lesion seen on recent CT scan. The patient's liver was scanned both by a registered casing crew pusher and mild sulcal. No correlate lesion was identified on ultrasound to the lesion seen on the CT scan. A simple hepatic cyst was noted in the right hepatic lobe which does not correspond to the lesion seen on recent CT. Because the suspicious lesion could not be identified with ultrasound and no procedure was performed. Recommend MRI of the abdomen with contrast for further attenuation. Signed: Ryan Suárez MDReport Verified Date/Time: 07/24/2019 19:07:31 Reading Location: [place] [address] Angio Body Reading Room BONE AND/OR JOINT IMAGING, WHOLE [id number] 15:49:00FINAL REPORT PROCEDURE: BONE SCAN, WHOLE BODY CPT CODE: 24340 INDICATION: Prostate cancer PROTOCOL: 20.2 mCi of Tc-99m MDP was injected intravenously. Wholebody and selected spot images were obtained approximately 3 hours later. FINDINGS: Delayed whole body bone scan spot images shows increased activity in the shoulders acromioclavicular joints, right worse than left sternal manubrial joints, lowers cervical spine, the wrist and mid right foot. There is focal increased activity involving L1/L2 with slight leftward concavity. The right kidney is not visualized. IMPRESSION: Abnormal whole body bone scan. There is widespread abnormalities consistent with degenerative changes. There is no typical metastatic pattern. Images for comparison/correlation were unavailable. Signed: Andre Forte MDReport Verified Date/Time: 07/24/2019 15:49:51 Reading Location: [address] Reading Room Electronically signed by: ANDRE FORTE MD on07/24/2019 03:49 [id number] 05:42:00 Test Item Value Reference Range Interpretation Comments PROTIME (BEAKER) (test code = 13.5 seconds 11.9-14.2 759) INR (BEAKER) (test code = 370) 1.1 <=5.9 PARTIAL THROMBOPLASTIN TIME 28.4 seconds 22.5-36.0 (BEAKER) (test code = 760) Effective 12/20/2018: PT Reference Range ChangeNew: 11.9-14.2 Previous: 11.7- 14.7RECOMMENDED COUMADIN/WARFARIN INR THERAPY RANGESSTANDARD DOSE: 2.0-3.0 Includes: PROPHYLAXIS for venous thrombosis, systemic embolization; TREATMENT for venous thrombosis and/or pulmonary embolus.HIGH RISK: Target INR is2.5-3.5 for patients wiht mechanical heart valves.[id number] 05:32:00 Test Item Value Reference Range Interpretation Comments PHOSPHORUS (BEAKER) (test code = 3.2 mg/dL 2.3-4.7 604) [id number] 05:32:00 Test Item Value Reference Range Interpretation Comments MAGNESIUM (BEAKER) (test code = 1.8 mg/dL 1.6-2.6 627) BASIC METABOLIC [id number] 05:32:00 Test Item Value Reference Range Interpretation Comments SODIUM (BEAKER) 139 meq/L 136-145 (test code = 381) POTASSIUM (BEAKER) 3.8 meq/L 3.5-5.1 (test code = 379) CHLORIDE (BEAKER) 107 meq/L 98-107 (test code = 382) CO2 (BEAKER) (test 28 meq/L 22-29 code = 355) BLOOD UREA NITROGEN 17 mg/dL 7-21 (BEAKER) (test code = 354) CREATININE (BEAKER) 1.04 mg/dL 0.57-1.25 (test code = 358) GLUCOSE RANDOM 102 mg/dL 70-105 (BEAKER) (test code = 652) CALCIUM (BEAKER) 9.8 mg/dL 8.4-10.2 (test code = 697) EGFR (BEAKER) (test 67 mL/min/1.73 ESTIMA TREY GFR IS code = 1092) sq m NOT ACCURATE CREATININE CLEARANCE IN PREDICTING GLOMERULAR FILTRATION RATE . ESTIMATED GFR I S NOT APPLICABLE FOR DIALYSIS PATIEN TS. LACTATE DEHYDROGENASE (LDH)2019-07-24 05:32:00 Test Item Value Reference Range Interpretation Comments LACTATE DEHYDROGENASE (BEAKER) (test 146 U/L 125-220 code = 635) CBC W/PLT COUNT & AUTO [id number] 05:11:00 Test Item Value Reference Range Interpretation Comments WHITE BLOOD CELL COUNT (BEAKER) 6.3 K/ L 3.5-10.5 (test code = 775) RED BLOOD CELL COUNT (BEAKER) 3.60 M/ L 4.63-6.08 L (test code = 761) HEMOGLOBIN (BEAKER) (test code = 11.4 GM/DL 13.7-17.5 L 410) HEMATOCRIT (BEAKER) (test code = 34.4 % 40.1-51.0 L 411) MEAN CORPUSCULAR VOLUME (BEAKER) 95.6 fL 79.0-92.2 H (test code = 753) MEAN CORPUSCULAR HEMOGLOBIN 31.7 pg 25.7-32.2 (BEAKER) (test code = 751) MEAN CORPUSCULAR HEMOGLOBIN CONC 33.1 GM/DL 32.3-36.5 (BEAKER) (test code = 752) RED CELL DISTRIBUTION WIDTH 13.0 % 11.6-14.4 (BEAKER) (test code = 412) PLATELET COUNT (BEAKER) (test 312 K/CU MM 150-450 code = 756) MEAN PLATELET VOLUME (BEAKER) 9.9 fL 9.4-12.4 (test code = 754) NUCLEATED RED BLOOD CELLS 0 /100 WBC 0-0 (BEAKER) (test code = 413) NEUTROPHILS RELATIVE PERCENT 60 % (BEAKER) (test code = 429) LYMPHOCYTES RELATIVE PERCENT 22 % (BEAKER) (test code = 430) MONOCYTES RELATIVE PERCENT 10 % (BEAKER) (test code = 431) EOSINOPHILS RELATIVE PERCENT 5 % (BEAKER) (test code = 432) BASOPHILS RELATIVE PERCENT 1 % (BEAKER) (test code = 437) NEUTROPHILS ABSOLUTE COUNT 3.82 K/ L 1.78-5.38 (BEAKER) (test code = 670) LYMPHOCYTES ABSOLUTE COUNT 1.41 K/ L 1.32-3.57 (BEAKER) (test code = 414) MONOCYTES ABSOLUTE COUNT (BEAKER) 0.62 K/ L 0.30-0.82 (test code = 415) EOSINOPHILS ABSOLUTE COUNT 0.34 K/ L 0.04-0.54 (BEAKER) (test code = 416) BASOPHILS ABSOLUTE COUNT (BEAKER) 0.08 K/ L 0.01-0.08 (test code = 417) IMMATURE GRANULOCYTES-RELATIVE 1 % 0-1 PERCENT (BEAKER) (test code = 2801) CALCIUM, [id number] 04:56:00 Test Item Value Reference Range Interpretation Comments CALCIUM IONIZED (BEAKER) (test 1.26 mmol/L 1.12-1.27 code = 698) PH, BLOOD (BEAKER) (test code = 7.39 1810) BASIC METABOLIC [id number] 11:06:00 Test Item Value Reference Range Interpretation Comments SODIUM (BEAKER) 141 meq/L 136-145 (test code = 381) POTASSIUM (BEAKER) 4.4 meq/L 3.5-5.1 (test code = 379) CHLORIDE (BEAKER) 109 meq/L 98-107 H (test code = 382) CO2 (BEAKER) (test 23 meq/L 22-29 code = 355) BLOOD UREA NITROGEN 15 mg/dL 7-21 (BEAKER) (test code = 354) CREATININE (BEAKER) 1.13 mg/dL 0.57-1.25 (test code = 358) GLUCOSE RANDOM 105 mg/dL 70-105 (BEAKER) (test code = 652) CALCIUM (BEAKER) 9.9 mg/dL 8.4-10.2 (test code = 697) EGFR (BEAKER) (test 61 mL/min/1.73 ESTIMA TREY GFR IS code = 1092) sq m NOT ACCURATE CREATININE CLEARANCE IN PREDICTING GLOMERULAR FILTRATION RATE . ESTIMATED GFR I S NOT APPLICABLE FOR DIALYSIS PATIEN TS. [id number] 11:06:00 Test Item Value Reference Range Interpretation Comments MAGNESIUM (BEAKER) (test code = 1.8 mg/dL 1.6-2.6 627) [id number] 09:51:00 Test Item Value Reference Range Interpretation Comments PROTIME (BEAKER) (test code = 13.1 seconds 11.9-14.2 759) INR (BEAKER) (test code = 370) 1.0 <=5.9 PARTIAL THROMBOPLASTIN TIME 31.5 seconds 22.5-36.0 (BEAKER) (test code = 760) Effective 12/20/2018: PT Reference Range ChangeNew: 11.9-14.2 Previous: 11.7- 14.7RECOMMENDED COUMADIN/WARFARIN INR THERAPY RANGESSTANDARD DOSE: 2.0-3.0 Includes: PROPHYLAXIS for venous thrombosis, systemic embolization; TREATMENT for venous thrombosis and/or pulmonary embolus.HIGH RISK: Target INR is2.5-3.5 for patients wiht mechanical heart valves.CBC W/PLT COUNT & AUTO [id number] 07:58:00 Test Item Value Reference Range Interpretation Comments WHITE BLOOD CELL COUNT (BEAKER) 7.5 K/ L 3.5-10.5 (test code = 775) RED BLOOD CELL COUNT (BEAKER) 3.59 M/ L 4.63-6.08 L (test code = 761) HEMOGLOBIN (BEAKER) (test code = 11.4 GM/DL 13.7-17.5 L 410) HEMATOCRIT (BEAKER) (test code = 35.1 % 40.1-51.0 L 411) MEAN CORPUSCULAR VOLUME (BEAKER) 97.8 fL 79.0-92.2 H (test code = 753) MEAN CORPUSCULAR HEMOGLOBIN 31.8 pg 25.7-32.2 (BEAKER) (test code = 751) MEAN CORPUSCULAR HEMOGLOBIN CONC 32.5 GM/DL 32.3-36.5 (BEAKER) (test code = 752) RED CELL DISTRIBUTION WIDTH 13.2 % 11.6-14.4 (BEAKER) (test code = 412) PLATELET COUNT (BEAKER) (test 317 K/CU MM 150-450 code = 756) MEAN PLATELET VOLUME (BEAKER) 10.0 fL 9.4-12.4 (test code = 754) NUCLEATED RED BLOOD CELLS 0 /100 WBC 0-0 (BEAKER) (test code = 413) NEUTROPHILS RELATIVE PERCENT 67 % (BEAKER) (test code = 429) LYMPHOCYTES RELATIVE PERCENT 15 % (BEAKER) (test code = 430) MONOCYTES RELATIVE PERCENT 11 % (BEAKER) (test code = 431) EOSINOPHILS RELATIVE PERCENT 5 % (BEAKER) (test code = 432) BASOPHILS RELATIVE PERCENT 1 % (BEAKER) (test code = 437) NEUTROPHILS ABSOLUTE COUNT 5.03 K/ L 1.78-5.38 (BEAKER) (test code = 670) LYMPHOCYTES ABSOLUTE COUNT 1.15 K/ L 1.32-3.57 L (BEAKER) (test code = 414) MONOCYTES ABSOLUTE COUNT (BEAKER) 0.81 K/ L 0.30-0.82 (test code = 415) EOSINOPHILS ABSOLUTE COUNT 0.37 K/ L 0.04-0.54 (BEAKER) (test code = 416) BASOPHILS ABSOLUTE COUNT (BEAKER) 0.07 K/ L 0.01-0.08 (test code = 417) IMMATURE GRANULOCYTES-RELATIVE 1 % 0-1 PERCENT (BEAKER) (test code = 2801) HEPATIC FUNCTION [id number] 18:21:00 Test Item Value Reference Range Interpretation Comments TOTAL PROTEIN (BEAKER) (test code = 6.4 gm/dL 6.0-8.3 770) ALBUMIN (BEAKER) (test code = 1145) 3.5 g/dL 3.5-5.0 BILIRUBIN TOTAL (BEAKER) (test code 0.4 mg/dL 0.2-1.2 = 377) BILIRUBIN DIRECT (BEAKER) (test 0.2 mg/dL 0.1-0.5 code = 706) ALKALINE PHOSPHATASE (BEAKER) (test 51 U/L 40-150 code = 346) AST (SGOT) (BEAKER) (test code = 12 U/L 5-34 353) ALT (SGPT) (BEAKER) (test code = 15 U/L 6-55 347) CALCIUM, [id number] 06:05:00 Test Item Value Reference Range Interpretation Comments CALCIUM IONIZED (BEAKER) (test 1.26 mmol/L 1.12-1.27 code = 698) PH, BLOOD (BEAKER) (test code = 7.34 1810) URIC [id number] 06:04:00 Test Item Value Reference Range Interpretation Comments URIC ACID (BEAKER) (test code = 7.8 mg/dL 2.6-7.2 H 773) [id number] 06:04:00 Test Item Value Reference Range Interpretation Comments MAGNESIUM (BEAKER) (test code = 1.9 mg/dL 1.6-2.6 627) [id number] 06:04:00 Test Item Value Reference Range Interpretation Comments PHOSPHORUS (BEAKER) (test code = 2.8 mg/dL 2.3-4.7 604) BASIC METABOLIC [id number] 06:04:00 Test Item Value Reference Range Interpretation Comments SODIUM (BEAKER) 141 meq/L 136-145 (test code = 381) POTASSIUM (BEAKER) 4.3 meq/L 3.5-5.1 (test code = 379) CHLORIDE (BEAKER) 110 meq/L 98-107 H (test code = 382) CO2 (BEAKER) (test 26 meq/L 22-29 code = 355) BLOOD UREA NITROGEN 19 mg/dL 7-21 (BEAKER) (test code = 354) CREATININE (BEAKER) 1.29 mg/dL 0.57-1.25 H (test code = 358) GLUCOSE RANDOM 113 mg/dL 70-105 H (BEAKER) (test code = 652) CALCIUM (BEAKER) 9.8 mg/dL 8.4-10.2 (test code = 697) EGFR (BEAKER) (test 53 mL/min/1.73 ESTIMA TREY GFR IS code = 1092) sq m NOT ACCURATE CREATININE CLEARANCE IN PREDICTING GLOMERULAR FILTRATION RATE . ESTIMATED GFR I S NOT APPLICABLE FOR DIALYSIS PATIEN TS. CREATINE KINASE (CK)2019-07-22 06:04:00 Test Item Value Reference Range Interpretation Comments CREATINE KINASE TOTAL (BEAKER) (test 23 U/L 29-200 L code = 380) B-TYPE NATRIURETIC FACTOR (BNP)2019-07-22 05:50:00 Test Item Value Reference Range Interpretation Comments B-TYPE NATRIURETIC PEPTIDE (BEAKER) 46 pg/mL 0-100 (test code = 700) CBC W/PLT COUNT & AUTO [id number] 05:27:00 Test Item Value Reference Range Interpretation Comments WHITE BLOOD CELL COUNT (BEAKER) 8.7 K/ L 3.5-10.5 (test code = 775) RED BLOOD CELL COUNT (BEAKER) 3.61 M/ L 4.63-6.08 L (test code = 761) HEMOGLOBIN (BEAKER) (test code = 11.4 GM/DL 13.7-17.5 L 410) HEMATOCRIT (BEAKER) (test code = 35.2 % 40.1-51.0 L 411) MEAN CORPUSCULAR VOLUME (BEAKER) 97.5 fL 79.0-92.2 H (test code = 753) MEAN CORPUSCULAR HEMOGLOBIN 31.6 pg 25.7-32.2 (BEAKER) (test code = 751) MEAN CORPUSCULAR HEMOGLOBIN CONC 32.4 GM/DL 32.3-36.5 (BEAKER) (test code = 752) RED CELL DISTRIBUTION WIDTH 13.5 % 11.6-14.4 (BEAKER) (test code = 412) PLATELET COUNT (BEAKER) (test 289 K/CU MM 150-450 code = 756) MEAN PLATELET VOLUME (BEAKER) 9.9 fL 9.4-12.4 (test code = 754) NUCLEATED RED BLOOD CELLS 0 /100 WBC 0-0 (BEAKER) (test code = 413) NEUTROPHILS RELATIVE PERCENT 72 % (BEAKER) (test code = 429) LYMPHOCYTES RELATIVE PERCENT 12 % (BEAKER) (test code = 430) MONOCYTES RELATIVE PERCENT 11 % (BEAKER) (test code = 431) EOSINOPHILS RELATIVE PERCENT 3 % (BEAKER) (test code = 432) BASOPHILS RELATIVE PERCENT 1 % (BEAKER) (test code = 437) NEUTROPHILS ABSOLUTE COUNT 6.27 K/ L 1.78-5.38 H (BEAKER) (test code = 670) LYMPHOCYTES ABSOLUTE COUNT 1.05 K/ L 1.32-3.57 L (BEAKER) (test code = 414) MONOCYTES ABSOLUTE COUNT (BEAKER) 0.96 K/ L 0.30-0.82 H (test code = 415) EOSINOPHILS ABSOLUTE COUNT 0.25 K/ L 0.04-0.54 (BEAKER) (test code = 416) BASOPHILS ABSOLUTE COUNT (BEAKER) 0.07 K/ L 0.01-0.08 (test code = 417) IMMATURE GRANULOCYTES-RELATIVE 1 % 0-1 PERCENT (BEAKER) (test code = 2801) EOSINOPHIL SMEAR, [id number] 17:55:00 Test Item Value Reference Range Interpretation Comments EOSINOPHIL SMEAR, URINE (BEAKER) No EOS seen No EOS seen (test code = 1851) CREATININE, RANDOM [id number] 17:03:00 Test Item Value Reference Range Interpretation Comments CREATININE URINE (BEAKER) (test 80.6 mg/dL code = 375) Reference Range: No NormalsPROTEIN, RANDOM [id number] 17:03:00 Test Item Value Reference Range Interpretation Comments PROTEIN, URINE (BEAKER) (test code = 16 mg/dL 0-14 H 1569) SODIUM, RANDOM [id number] 17:03:00 Test Item Value Reference Range Interpretation Comments SODIUM URINE (BEAKER) (test code = 31 meq/L 243) Reference Range: No NormalsRAD, CHEST, 1 VIEW, NON [id number] 16:55:00Reason for exam:->Persistent coughShould this be performed at the bedside?->Yes FINAL REPORT INDICATION: Persistent cough TECHNIQUE: Chest radiograph, singleview, portable technique. FINDINGS / IMPRESSION: There is mild hyperexpansion which may represent chronic obstructive pulmonary disease. No pneumonia or lung mass is demonstrated. Heart shadow is normal in size. No pneumothorax or pleural effusion is demonstrated. Osseous structures unremarkable. Signed: Sigifredo Carranza MDReport Verified Date/Time: 07/21/2019 16:55:53 Reading Location: [facility] [id number] Consult Reading Room URINALYSIS W/ [id number] 16:43:00 Test Item Value Reference Range Interpretation Comments COLOR (BEAKER) (test code = 470) Yellow CLARITY (BEAKER) (test code = 469) Clear SPECIFIC GRAVITY UA (BEAKER) (test 1.010 1.001-1.035 code = 468) PH UA (BEAKER) (test code = 467) 5.5 5.0-8.0 PROTEIN UA (BEAKER) (test code = 10 mg/dL Negative A 464) GLUCOSE UA (BEAKER) (test code = Negative Negative 365) KETONES UA (BEAKER) (test code = Negative Negative 371) BILIRUBIN UA (BEAKER) (test code = Negative Negative 462) BLOOD UA (BEAKER) (test code = Moderate Negative A 461) NITRITE UA (BEAKER) (test code = Negative Negative 465) LEUKOCYTE ESTERASE UA (BEAKER) Moderate Negative A (test code = 466) UROBILINOGEN UA (BEAKER) (test 0.2 mg/dL 0.2-1.0 code = 463) RBC UA (BEAKER) (test code = 519) 7 /HPF WBC UA (BEAKER) (test code = 520) 5 /HPF BACTERIA (BEAKER) (test code = Occasional 517) MUCUS (BEAKER) (test code = 1574) Rare SOURCE(BEAKER) (test code = 5437) BASIC METABOLIC [id number] 06:18:00 Test Item Value Reference Range Interpretation Comments SODIUM (BEAKER) 137 meq/L 136-145 (test code = 381) POTASSIUM (BEAKER) 4.2 meq/L 3.5-5.1 (test code = 379) CHLORIDE (BEAKER) 105 meq/L 98-107 (test code = 382) CO2 (BEAKER) (test 22 meq/L 22-29 code = 355) BLOOD UREA NITROGEN 34 mg/dL 7-21 H (BEAKER) (test code = 354) CREATININE (BEAKER) 2.62 mg/dL 0.57-1.25 H (test code = 358) GLUCOSE RANDOM 108 mg/dL 70-105 H (BEAKER) (test code = 652) CALCIUM (BEAKER) 10.0 mg/dL 8.4-10.2 (test code = 697) EGFR (BEAKER) (test 23 mL/min/1.73 ESTIMA TREY GFR IS code = 1092) sq m NOT ACCURATE CREATININE CLEARANCE IN PREDICTING GLOMERULAR FILTRATION RATE . ESTIMATED GFR I S NOT APPLICABLE FOR DIALYSIS PATIEN TS. [id number] 06:13:00 Test Item Value Reference Range Interpretation Comments MAGNESIUM (BEAKER) (test code = 1.9 mg/dL 1.6-2.6 627) CBC W/PLT COUNT & AUTO [id number] 05:30:00 Test Item Value Reference Range Interpretation Comments WHITE BLOOD CELL COUNT (BEAKER) 14.2 K/ L 3.5-10.5 H (test code = 775) RED BLOOD CELL COUNT (BEAKER) 3.91 M/ L 4.63-6.08 L (test code = 761) HEMOGLOBIN (BEAKER) (test code = 12.4 GM/DL 13.7-17.5 L 410) HEMATOCRIT (BEAKER) (test code = 36.8 % 40.1-51.0 L 411) MEAN CORPUSCULAR VOLUME (BEAKER) 94.1 fL 79.0-92.2 H (test code = 753) MEAN CORPUSCULAR HEMOGLOBIN 31.7 pg 25.7-32.2 (BEAKER) (test code = 751) MEAN CORPUSCULAR HEMOGLOBIN CONC 33.7 GM/DL 32.3-36.5 (BEAKER) (test code = 752) RED CELL DISTRIBUTION WIDTH 13.3 % 11.6-14.4 (BEAKER) (test code = 412) PLATELET COUNT (BEAKER) (test 289 K/CU MM 150-450 code = 756) MEAN PLATELET VOLUME (BEAKER) 10.5 fL 9.4-12.4 (test code = 754) NUCLEATED RED BLOOD CELLS 0 /100 WBC 0-0 (BEAKER) (test code = 413) NEUTROPHILS RELATIVE PERCENT 87 % (BEAKER) (test code = 429) LYMPHOCYTES RELATIVE PERCENT 4 % (BEAKER) (test code = 430) MONOCYTES RELATIVE PERCENT 8 % (BEAKER) (test code = 431) EOSINOPHILS RELATIVE PERCENT 0 % (BEAKER) (test code = 432) BASOPHILS RELATIVE PERCENT 0 % (BEAKER) (test code = 437) NEUTROPHILS ABSOLUTE COUNT 12.32 K/ L 1.78-5.38 H (BEAKER) (test code = 670) LYMPHOCYTES ABSOLUTE COUNT 0.62 K/ L 1.32-3.57 L (BEAKER) (test code = 414) MONOCYTES ABSOLUTE COUNT (BEAKER) 1.11 K/ L 0.30-0.82 H (test code = 415) EOSINOPHILS ABSOLUTE COUNT 0.06 K/ L 0.04-0.54 (BEAKER) (test code = 416) BASOPHILS ABSOLUTE COUNT (BEAKER) 0.05 K/ L 0.01-0.08 (test code = 417) IMMATURE GRANULOCYTES-RELATIVE 1 % 0-1 PERCENT (BEAKER) (test code = 2801) CT, [id number] 03:02:00Anesthesia:->NoneFINAL REPORT CLINICAL HISTORY: Abdominal trauma, gross hematuria FINDINGS: Multiple axial images of the abdomen and pelvis were performed without intravenous contrast. Oral contrast was not given. This exam was performed according to our departmental dose-optimization program, which includes automated exposure control, adjustment of the mA and/or kV according to patient size and/or use of the iterative reconstruction technique. The examination is limited by lack of IV contrast. Comparison:None. Lower chest: Curvilinear atelectasis versus scarring in the lung bases. Left lower lobe emphysematous changes. No pleural effusion or pneumothorax. Visualized cardiac contours normal. Liver: The right hepatic margin is enlarged, measuring 18.7 cm. There are nonspecific hypodensitiesin the right liver, the largest measuring 1.9 cm. Gallbladder and biliary tree: No significant findings. Spleen: No significant findings. Adrenal Glands: No significant findings. Kidneys and ureters: Previous right nephrectomy. There is compensatory hypertrophy of the left kidney. There is nonspecificperinephric stranding on the left. There is mild left pelviectasis but no hydronephrosis. No radiopaque nephrolithiasis is present. 2.3 cm cyst in the inferior left kidney. Stomach and Duodenum: Small hiatal hernia. 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 Pancreas: No significantfindings. Bowel: No significant findings. Appendix: Normal. Bladder: A catheter is present in theurinary bladder which is distended with urine. Major vascular structures: Atherosclerotic calcifications Reproductive organs: No significant findings. Other: No free air, fluid or adenopathy Skeleton: Several ill-defined osseous lucent lesions in the spine and left pelvis, some of which demonstrates cortical scalloping/breakthrough. IMPRESSION: The examination is limited by lack of IV contrast. No acute abnormality is present to explain the patient's hematuria. The urinary bladder is distended despite the presence of a catheter. Please correlate with catheter function. Previous right nephrectomy. There are several small lucent lesions in the visualized spine and left pelvis, some of which demonstrate cortical scalloping/breakthrough. The appearance is concerning for osseous metastatic disease. Evaluation with MRI or bone scan is recommended. Hepatomegaly. Nonspecific hypodensities in the right liver measuring up to 1.9 cm. Metastatic disease can be excluded with liver protocol MRI, if indicated. Signed: Dom Newman MDReport Verified Date/Time: 07/21/2019 03:02:47 Electronically signedby: DOM NEWMAN M.D. on 07/21/2019 03:02 AMBASIC METABOLIC [id number] 06:59:00 Test Item Value Reference Range Interpretation Comments SODIUM (BEAKER) 135 meq/L 136-145 L (test code = 381) POTASSIUM (BEAKER) 4.4 meq/L 3.5-5.1 (test code = 379) CHLORIDE (BEAKER) 103 meq/L 98-107 (test code = 382) CO2 (BEAKER) (test 22 meq/L 22-29 code = 355) BLOOD UREA NITROGEN 27 mg/dL 7-21 H (BEAKER) (test code = 354) CREATININE (BEAKER) 2.93 mg/dL 0.57-1.25 H (test code = 358) GLUCOSE RANDOM 149 mg/dL 70-105 H (BEAKER) (test code = 652) CALCIUM (BEAKER) 9.6 mg/dL 8.4-10.2 (test code = 697) EGFR (BEAKER) (test 20 mL/min/1.73 ESTIMA TREY GFR IS code = 1092) sq m NOT ACCURATE CREATININE CLEARANCE IN PREDICTING GLOMERULAR FILTRATION RATE . ESTIMATED GFR I S NOT APPLICABLE FOR DIALYSIS PATIEN TS. CBC W/PLT COUNT & AUTO [id number] 06:15:00 Test Item Value Reference Range Interpretation Comments WHITE BLOOD CELL COUNT (BEAKER) 21.0 K/ L 3.5-10.5 H (test code = 775) RED BLOOD CELL COUNT (BEAKER) 4.26 M/ L 4.63-6.08 L (test code = 761) HEMOGLOBIN (BEAKER) (test code = 13.5 GM/DL 13.7-17.5 L 410) HEMATOCRIT (BEAKER) (test code = 39.8 % 40.1-51.0 L 411) MEAN CORPUSCULAR VOLUME (BEAKER) 93.4 fL 79.0-92.2 H (test code = 753) MEAN CORPUSCULAR HEMOGLOBIN 31.7 pg 25.7-32.2 (BEAKER) (test code = 751) MEAN CORPUSCULAR HEMOGLOBIN CONC 33.9 GM/DL 32.3-36.5 (BEAKER) (test code = 752) RED CELL DISTRIBUTION WIDTH 13.3 % 11.6-14.4 (BEAKER) (test code = 412) PLATELET COUNT (BEAKER) (test 316 K/CU MM 150-450 code = 756) MEAN PLATELET VOLUME (BEAKER) 10.2 fL 9.4-12.4 (test code = 754) NUCLEATED RED BLOOD CELLS 0 /100 WBC 0-0 (BEAKER) (test code = 413) NEUTROPHILS RELATIVE PERCENT 91 % (BEAKER) (test code = 429) LYMPHOCYTES RELATIVE PERCENT 2 % (BEAKER) (test code = 430) MONOCYTES RELATIVE PERCENT 6 % (BEAKER) (test code = 431) EOSINOPHILS RELATIVE PERCENT 0 % (BEAKER) (test code = 432) BASOPHILS RELATIVE PERCENT 0 % (BEAKER) (test code = 437) NEUTROPHILS ABSOLUTE COUNT 19.10 K/ L 1.78-5.38 H (BEAKER) (test code = 670) LYMPHOCYTES ABSOLUTE COUNT 0.36 K/ L 1.32-3.57 L (BEAKER) (test code = 414) MONOCYTES ABSOLUTE COUNT (BEAKER) 1.33 K/ L 0.30-0.82 H (test code = 415) EOSINOPHILS ABSOLUTE COUNT 0.00 K/ L 0.04-0.54 L (BEAKER) (test code = 416) BASOPHILS ABSOLUTE COUNT (BEAKER) 0.04 K/ L 0.01-0.08 (test code = 417) IMMATURE GRANULOCYTES-RELATIVE 1 % 0-1 PERCENT (BEAKER) (test code = 2801) PROTHROMBIN [id number] 06:06:00 Test Item Value Reference Range Interpretation Comments PROTIME (BEAKER) (test code = 13.3 seconds 11.9-14.2 759) INR (BEAKER) (test code = 370) 1.1 <=5.9 Effective 12/20/2018: PT Reference Range ChangeNew: 11.9-14.2 Previous: 11.7- 14.7RECOMMENDED COUMADIN/WARFARIN INR THERAPY RANGESSTANDARD DOSE: 2.0-3.0 Includes: PROPHYLAXIS for venous thrombosis, systemic embolization; TREATMENT for venous thrombosis and/or pulmonary embolus.HIGH RISK: Target INR is2.5-3.5 for patients wiht mechanical heart valves.URINALYSIS W/ REFLEX URINE CULTURE 2019-07-20 02:03:00 Test Item Value Reference Range Interpretation Comments COLOR (BEAKER) (test code = 470) Dark Red CLARITY (BEAKER) (test code = 469) Turbid SPECIFIC GRAVITY UA (BEAKER) (test 1.006 1.001-1.035 code = 468) PH UA (BEAKER) (test code = 467) 7.5 5.0-8.0 PROTEIN UA (BEAKER) (test code = 100 mg/dL Negative A 464) GLUCOSE UA (BEAKER) (test code = Negative Negative 365) KETONES UA (BEAKER) (test code = Negative Negative 371) BILIRUBIN UA (BEAKER) (test code = Negative Negative 462) BLOOD UA (BEAKER) (test code = Large Negative A 461) NITRITE UA (BEAKER) (test code = Negative Negative 465) LEUKOCYTE ESTERASE UA (BEAKER) Moderate Negative A (test code = 466) UROBILINOGEN UA (BEAKER) (test 0.2 mg/dL 0.2-1.0 code = 463) RBC UA (BEAKER) (test code = 519) 88372 /HPF WBC UA (BEAKER) (test code = 520) 228 /HPF MUCUS (BEAKER) (test code = 1574) Few SQUAMOUS EPITHELIAL (BEAKER) (test 21 /HPF code = 516) SOURCE(BEAKER) (test code = 2215)
[2020-12-19] MEDS ORDERED: METHYLPREDNISOLONE 125 MG INJ ONE (11:01)
[2020-12-19] MEDS ORDERED: KETOROLAC 30 MG/ML INJ ONE (11:01)
[2020-12-19 11:09] LABS: Potassium 4.6 mmol/L (3.5-5.1)
--- NOTE | 2020-12-19 11:26 | RAD REPORT ---
EXAM DESCRIPTION: US - Extremity Venous Uni Ltd - 12/19/2020 11:11 am CLINICAL HISTORY: Numbness/tingling;Pain Leg swelling and edema. COMPARISON: No comparisons FINDINGS: Right lower extremity venous system was interrogated with Doppler technique. Normal flow, compressibility and augmentation was noted. There is no DVT present. IMPRESSION: No evidence of right lower extremity deep venous thrombosis.
--- NOTE | 2020-12-19 12:02 | RAD REPORT ---
EXAM DESCRIPTION: RAD - Foot Left 3 View - 12/19/2020 11:29 am CLINICAL HISTORY: PAIN COMPARISON: No comparisons FINDINGS: No acute fracture or dislocation seen. No aggressive marrow lesion. Tiny calcaneal spurs.
[2020-12-19 12:50] LABS: Absolute Lymphocytes (CBC) 0.6 K/uL (0.7-4.9); Basophils % 0.6 % (0-1.3); Hematocrit 37.9 % (39.6-49.0); Lymphocytes % 4.7 % (15.3-44.8); MPV 8.3 fL (7.6-11.3); RBC Red Blood Cell Count 4.15 M/uL (4.33-5.43)
[2020-12-19] MEDS ORDERED: TRAMADOL HCL 50 MG TAB ONE (13:07)
--- NOTE | 2020-12-19 13:18 | EDPHYS ---
Physician Documentation [facility] Name: Dave Gavin Age: 89 yrs Sex: Male : 1930 Arrival Date: 12/19/2020 Time: 09:59 Bed 7 Private MD: ED Physician Roby Espinoza HPI: 12/19 16:16 This 89 yrs old Male presents to ER via Ambulatory with complaints of Foot kdr Pain, hasnd swelling and neck pain. 16:16 The patient presents with pain. The complaints affect the right foot, face, right hand kdr and right posterior aspect of neck. Context: The problem was sustained at home, resulted from an unknown cause, the patient can fully bear weight, the patient is able to ambulate, without difficulty. Onset: The symptoms/episode began/occurred suddenly, this morning. Modifying factors: The symptoms are alleviated by nothing, stillness the symptoms are aggravated by weight bearing, movement. Associated signs and symptoms: The patient has no apparent associated signs or symptoms. Severity of symptoms: At their worst the symptoms were mild, in the emergency department the symptoms are unchanged. The patient has experienced similar episodes in the past, The patient has migratory joint pain that comes and goes over time. he had not had foot pain and was concerned about possible blood clot. The patient has not recently seen a physician. Historical: - Allergies: 10:02 Fluroquinolones; ll1 10:02 Sulfa (Sulfonamide Antibiotics); ll1 - PMHx: 10:02 Atrial Fib; Hypertension; malignant melanoma; ll1 - PSHx: 10:02 melanoma; prostate; Knee surgery; bladder; eye; ll1 - Immunization history:: Flu vaccine is up to date. - Social history:: Smoking status: Patient denies any tobacco usage or history of. ROS: 16:16 Constitutional: Negative for fever, chills, and weight loss, Eyes: Negative for injury, kdr pain, redness, and discharge, Neck: Negative for injury, pain, and swelling, Cardiovascular: Negative for chest pain, palpitations, and edema, Respiratory: Negative for shortness of breath, cough, wheezing, and pleuritic chest pain, Abdomen/GI: Negative for abdominal pain, nausea, vomiting, diarrhea, and constipation, Back: Negative for injury and pain, : Negative for injury, bleeding, discharge, and swelling, Skin: Negative for injury, rash, and discoloration, Neuro: Negative for headache, weakness, numbness, tingling, and seizure activity. Psych: Negative for depression, anxiety, suicide ideation, homicidal ideation, and hallucinations, Allergy/Immunology: Negative for hives, rash, and allergies, Endocrine: Negative for neck swelling, polydipsia, polyuria, polyphagia, and marked weight changes, Hematologic/Lymphatic: Negative for swollen nodes, abnormal bleeding, and unusual bruising. 16:16 MS/extremity: Positive for pain, tenderness, Negative for injury or acute deformity, decreased range of motion, erythema, paresthesias, rash. Exam: 16:16 Constitutional: This is a well developed, well nourished patient who is awake, alert, kdr and in no acute distress. Head/Face: Normocephalic, atraumatic. Eyes: Pupils equal round and reactive to light, extra-ocular motions intact. Lids and lashes normal. Conjunctiva and sclera are non-icteric and not injected. Cornea within normal limits. Periorbital areas with no swelling, redness, or edema. Neck: Trachea midline, no thyromegaly or masses palpated, and no cervical lymphadenopathy. Supple, full range of motion without nuchal rigidity, or vertebral point tenderness. No Meningismus. Chest/axilla: Normal chest wall appearance and motion. Nontender with no deformity. No lesions are appreciated. Cardiovascular: Regular rate and rhythm with a normal S1 and S2. No gallops, murmurs, or rubs. Normal PMI, no JVD. No pulse deficits. Respiratory: Lungs have equal breath sounds bilaterally, clear to auscultation and percussion. No rales, rhonchi or wheezes noted. No increased work of breathing, no retractions or nasal flaring. Abdomen/GI: Soft, non-tender, with normal bowel sounds. No distension or tympany. No guarding or rebound. No evidence of tenderness throughout. Back: No spinal tenderness. No costovertebral tenderness. Full range of motion. MS/ Extremity: Pulses equal, no cyanosis. Neurovascular intact. Full, normal range of motion. Swelling of 2nd and 3rd MCP and not able to make a fist with right hand Neuro: Awake and alert, GCS 15, oriented to person, place, time, and situation. Cranial nerves II-XII grossly intact. Motor strength 5/5 in all extremities. Sensory grossly intact. Cerebellar exam normal. Normal gait. Psych: Awake, alert, with orientation to person, place and time. Behavior, mood, and affect are within normal limits. Vital Signs: 10:09 Temp 97.2; Weight 84.37 kg; Height 5 ft. 11 in. (180.34 cm); Pain 9/10; ll1 10:11 BP 126 / 81; Pulse 85; Resp 16 S; Temp 97.2(TE); Pulse Ox 97% on R/A; ca1 11:00 BP 141 / 64; Pulse 82; Resp 16 S; Pulse Ox 94% on R/A; ca1 12:00 BP 135 / 62; Pulse 80; Resp 18 S; Pulse Ox 95% on R/A; ca1 13:32 BP 129 / 61; Pulse 81; Resp 16 S; Pulse Ox 98% on R/A; ca1 10:09 Body Mass Index 25.94 (84.37 kg, 180.34 cm) ll1 MDM: 13:17 Patient medically screened. kdr 13:22 Data reviewed: vital signs, nurses notes, lab test result(s), radiologic studies. kdr Counseling: I had a detailed discussion with the patient and/or guardian regarding: the historical points, exam findings, and any diagnostic results supporting the discharge/admit diagnosis, lab results, radiology results, the need for outpatient follow up. ED course: [employer] Aware: narc 280, Sed, 381, OD 170. 16:16 Response to treatment: the patient's symptoms have markedly improved after treatment, kdr Was able to make a fist with his right hand and had minimal pain in neck, hand and foot on right. 12/19 10:38 Order name: CBC with Diff kdr 12/19 10:38 Order name: Chem 7; Complete Time: 12:25 kdr 12/19 10:38 Order name: ESR; Complete Time: 13:16 kdr 12/19 10:38 Order name: CRP; Complete Time: 12:25 kdr 12/19 10:38 Order name: Foot Left 3 View XRAY; Complete Time: 12:25 kdr 12/19 10:39 Order name: CBC with Automated Diff; Complete Time: 13:16 EDMS 12/19 10:39 Order name: US Extremity Venous Unilateral Ltd; Complete Time: 12:25 kdr Administered Medications: 10:41 Drug: TORadol - (ketorolac) 15 mg Route: IVP; Site: right antecubital; ca1 11:30 Follow up: Response: No adverse reaction; Pain is decreased ca1 10:43 Drug: SOLU-Medrol (methylPrednisoLONE) 125 mg Route: IVP; Site: right antecubital; ca1 11:30 Follow up: Response: No adverse reaction; Pain is decreased ca1 12:48 Drug: traMADol 50 mg {Note: rass 0.} Route: PO; ca1 13:30 Follow up: Response: No adverse reaction; Pain is decreased; RASS: Alert and Calm (0) ca1 Disposition: 12/19/20 13:17 Discharged to Home. Impression: Pain in right foot, Pain in joint, Pain in unspecified joint. - Condition is Stable. - Discharge Instructions: Pain Without a Known Cause, Joint Pain, Cohr-ha-Aznp, Foot Pain. - Prescriptions for Ibuprofen 600 mg Oral Tablet - take 1 tablet by ORAL route every 6 hours As needed take with food; 30 tablet. Tramadol 50 mg Oral Tablet - take 1 tablet by ORAL route every 8 hours as needed; 12 tablet. Medrol (Vinicius) 4 mg Oral Tablets, Dose Pack - take 1 tablet by ORAL route as directed - follow package instructions; 1 packet. - Medication Reconciliation Form, Thank You Letter, Prescription Opioid Use form. - Follow up: Private Physician; When: 2 - 3 days; Reason: If symptoms return, Further diagnostic work-up, Recheck today's complaints, Continuance of care, Re-evaluation by your physician. - Problem is new. - Symptoms have improved. Signatures: Dispatcher [employer] EDMN Roby Espinoza MD MD kdr Altagracia Beck RN RN ca1 Sammi Love RN RN ll1 Corrections: (The following items were deleted from the chart) 13:34 13:17 12/19/2020 13:17 Discharged to Home. Impression: Pain in right foot; Pain in ca1 joint; Pain in unspecified joint. Condition is Stable. Forms are Medication Reconciliation Form, Thank You Letter, Antibiotic Education, Prescription Opioid Use. Follow up: Private Physician; When: 2 - 3 days; Reason: If symptoms return, Further diagnostic work-up, Recheck today's complaints, Continuance of care, Re-evaluation by your physician. Problem is new. Symptoms have improved. kdr
--- NOTE | 2020-12-19 13:18 | ER ---
Nurse's Notes [facility] Name: Dave Gavin Age: 89 yrs Sex: Male : 1930 Arrival Date: 12/19/2020 Time: 09:59 Bed 7 Private MD: Diagnosis: Pain in right foot;Pain in joint;Pain in unspecified joint Presentation: 12/19 10:09 Chief complaint: Patient states: Awoke today with R foot pain, R hand pain, and neck ll1 pain. No trauma or falls. Coronavirus screen: Client denies travel out of the [place] in the last 14 days. At this time, the client does not indicate any symptoms associated with coronavirus-19. Ebola Screen: Patient denies travel to an Ebola-affected area in the 21 days before illness onset. Initial Sepsis Screen: Does the patient meet any 2 criteria? No. Patient's initial sepsis screen is negative. Does the patient have a suspected source of infection? Yes: Bone or joint infection. Risk Assessment: Do you want to hurt yourself or someone else? Patient reports no desire to harm self or others. Onset of symptoms was December 19, 2020. 10:09 Method Of Arrival: Ambulatory ll1 10:09 Acuity: ANGEL 4 ll1 Historical: - Allergies: 10:02 Fluroquinolones; ll1 10:02 Sulfa (Sulfonamide Antibiotics); ll1 - PMHx: 10:02 Atrial Fib; Hypertension; malignant melanoma; ll1 - PSHx: 10:02 melanoma; prostate; Knee surgery; bladder; eye; ll1 - Immunization history:: Flu vaccine is up to date. - Social history:: Smoking status: Patient denies any tobacco usage or history of. Screenin:10 Abuse screen: Denies threats or abuse. Nutritional screening: No deficits noted. ll1 Tuberculosis screening: No symptoms or risk factors identified. 10:11 Fall Risk Ambulatory Aid- Crutches/Cane/Walker (15 pts). Total [place] Fall Scale ca1 indicates No Risk (0-24 pts). Assessment: 10:11 General: Appears in no apparent distress. comfortable, Behavior is calm, cooperative, ca1 appropriate for age. Pain: Complains of pain in right foot Pain currently is 9 out of 10 on a pain scale. Pain began this morning Aggravated by weight bearing. Neuro: Level of Consciousness is awake, alert, obeys commands, Oriented to person, place, time, situation. Derm: Skin is intact, is healthy with good turgor, Skin is pink, warm \T\ dry. Musculoskeletal: Capillary refill < 3 seconds, Range of motion: intact in all extremities, Swelling absent. 11:00 Reassessment: Patient appears in no apparent distress at this time. Patient and/or ca1 family updated on plan of care and expected duration. Pain level reassessed. Patient is alert, oriented x 3, equal unlabored respirations, skin warm/dry/pink. 11:50 Reassessment: Patient appears in no apparent distress at this time. Patient and/or ca1 family updated on plan of care and expected duration. Pain level reassessed. Patient is alert, oriented x 3, equal unlabored respirations, skin warm/dry/pink. 12:49 Reassessment: Patient appears in no apparent distress at this time. Patient and/or ca1 family updated on plan of care and expected duration. Pain level reassessed. Patient is alert, oriented x 3, equal unlabored respirations, skin warm/dry/pink. 13:32 Reassessment: Patient appears in no apparent distress at this time. Patient is alert, ca1 oriented x 3, equal unlabored respirations, skin warm/dry/pink. Patient states feeling better. Vital Signs: 10:09 Temp 97.2; Weight 84.37 kg; Height 5 ft. 11 in. (180.34 cm); Pain 9/10; ll1 10:11 BP 126 / 81; Pulse 85; Resp 16 S; Temp 97.2(TE); Pulse Ox 97% on R/A; ca1 11:00 BP 141 / 64; Pulse 82; Resp 16 S; Pulse Ox 94% on R/A; ca1 12:00 BP 135 / 62; Pulse 80; Resp 18 S; Pulse Ox 95% on R/A; ca1 13:32 BP 129 / 61; Pulse 81; Resp 16 S; Pulse Ox 98% on R/A; ca1 10:09 Body Mass Index 25.94 (84.37 kg, 180.34 cm) ll1 ED Course: 09:59 Patient arrived in ED. bp1 10:01 Arm band placed on Patient placed in an exam room, on a stretcher. ll1 10:06 Altagracia Beck, RN is Primary Nurse. ca1 10:09 Roby Espinoza MD is Attending Physician. kdr 10:10 Triage completed. ll1 10:10 Bed in low position. Call light in reach. Side rails up X 1. ll1 10:11 Pulse ox on. NIBP on. Warm blanket given. ca1 10:39 No provider procedures requiring assistance completed. Initial lab(s) drawn, by wi, ca1 sent to lab. Inserted saline lock: 20 gauge in right antecubital area, using aseptic technique. Blood collected. 10:43 CBC with Diff Sent. mh5 10:43 Chem 7 Sent. mh5 10:44 ESR Sent. 5 10:44 CRP Sent. 5 10:44 CBC with Automated Diff Sent. mh5 11:11 US Extremity Venous Unilateral Ltd In Process Unspecified. EDMS 11:29 Foot Left 3 View XRAY In Process Unspecified. EDMS 13:33 IV discontinued, intact, bleeding controlled, No redness/swelling at site. Pressure ca1 dressing applied. Administered Medications: 10:41 Drug: TORadol - (ketorolac) 15 mg Route: IVP; Site: right antecubital; ca1 11:30 Follow up: Response: No adverse reaction; Pain is decreased ca1 10:43 Drug: SOLU-Medrol (methylPrednisoLONE) 125 mg Route: IVP; Site: right antecubital; ca1 11:30 Follow up: Response: No adverse reaction; Pain is decreased ca1 12:48 Drug: traMADol 50 mg {Note: rass 0.} Route: PO; ca1 13:30 Follow up: Response: No adverse reaction; Pain is decreased; RASS: Alert and Calm (0) ca1 Outcome: 13:17 Discharge ordered by . kdr 13:33 Discharged to home via wheelchair, with family. ca1 13:33 Condition: stable 13:33 Discharge instructions given to patient, Instructed on discharge instructions, follow up and referral plans. no drinking with medication, no driving heavy equipment, medication usage, Demonstrated understanding of instructions, follow-up care, medications, Prescriptions given X 3. 13:34 Patient left the ED. ca1 Signatures: Dispatcher [employer] EDMS Roby Espinoza MD MD kdr Martinez, Maria 5 Altagracia Beck RN RN ca1 Sammi Love RN RN ll1 Manisha Ghotra
[2020-12-19 13:39] VITALS: TEMP 97.2
[2020-12-19 13:46] VITALS: BP 129/61; O2SAT 98
== END 2020-12-19 13:34 | disposition home or self-care (01) ==
LOC: ER 09:56
DX: M25.572 Pain in left ankle and joints of left foot (principal); I10 Essential (primary) hypertension; Z85.820 Personal history of malignant melanoma of skin; Z88.2 Allergy status to sulfonamides; Z88.5 Allergy status to narcotic agent
CPT/HCPCS: 85025; 80048; 36415; 85652; 86140; 73630; 93971; 96375; 96374; 99284; J2930